=== PATIENT | female | born 1965 | race African-American/Black ===

== ENCOUNTER 2019-10-24 15:30 | Outpatient (RCR) | payer OTHER, SELFPAY ==
--- NOTE | 2019-09-03 13:55 | PTOPEVAL ---
INITIAL PHYSICAL THERAPY EVALUATION and PLAN OF CARE Thank you for referring Tanna to [facility]. She will be seen in PT 2x/wk x 4 wks. Please review, sign, date and return this plan of care YARY. I agree with and certify that the following plan of care is medically necessary. Referring Physician Date Admitting Provider: Attending Provider: Tk Alexandre MD Referring Provider: *PT Outpatient Evaluation Start: 09/03/19 12:39 Freq: Status: Active Protocol: Document 09/03/19 12:35 THERESA (Rec: 09/03/19 13:54 THERESA [id number]) Therapy Assessment Status Assessment Status Assessment Status Evaluation Outpatient Past Medical History Neurological History Hx Neurological Disorders No Significant History Cardiovascular History Hx Hypercholesterolemia Yes Hx Hypertension Yes Respiratory History Hx Respiratory Disorders No Significant History Gastrointestinal History Hx Gastrointestinal Disorders No Significant History Genitourinary History Hx Genitourinary Disorders No Significant History Musculoskeletal History Hx Back Pain Yes Endocrine History Hx Endocrine Disorders No Significant History Reproductive History Hx Reproductive Disorders No Significant History Psychosocial History Hx Depression Yes Evaluation Information Problem Diagnosis back pain, sciatica Onset years ago Subjective Information following prolonged sitting - Query Text:As Reported By Patient/ when goes to stand - R back/ Family thigh pain occurs 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 Does have to lift boxes - tries to watch the weight but on occasions does lift too heavy of a box for her. Years ago - fell down some steps. Walking long distances - lower back will hurt then R thigh. On occasions - feels like R knee/leg will give out on her. Sleeps on L side. 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
--- NOTE | 2019-09-24 14:53 | PCPTNOTE ---
Patient called & cancelled scheduled appointment this date.
--- NOTE | 2019-10-03 16:06 | PTOPEVAL ---
PHYSICAL THERAPY RE-EVALUATION and PLAN OF CARE Thank you for referring Tanna Huynh to [facility]. Recommending continuation of care 2x/wk x 4 wks. Please review, sign, date and return this plan of care YARY. I agree with and certify that the following plan of care is medically necessary. Referring Physician Date Admitting Provider: Attending Provider: Tk Alexandre MD Referring Provider: *PT Outpatient Evaluation Start: 09/03/19 12:39 Freq: Status: Active Protocol: Document 10/03/19 14:40 THERESA (Rec: 10/03/19 16:06 THERESA [email or web address]) Therapy Assessment Status Assessment Status Assessment Status Re-evaluation Evaluation Information Problem Subjective Information Tanna states today is a good Query Text:As Reported By Patient/ day. Woke up - no R leg pain Family - hasn't been to work today either. When R leg pain is present - still in R thigh, doesn't radiate below knee level. For sleeping - still taking pain pill for increase ease to get to sleep. Working - at times needs to leave work early due to increased R thigh pain. Still lifting items into and out of cart often - tries to avoid lifting , and not going up/down ladder anymore. She does limit her household activities due to trying to avoid increase in R thigh pain. Prefers not to take breaks at work due to after resting there is usually increase in discomfort - does better if she just keeps going. Pain Assessment Timing of Pain Assessment Timing of Pain Assessment Assessment Pain Scale Pain Scale Used Numeric (1 - 10) Self Report Pain Assessment Lower Posterior Back Reported Pain Level 0 Pain Description Pinching,Radiating,Sharp, Tightness Radicular Pain Location R anterior thigh - stays above knee level Lowest Pain Intensity 0 Greatest Pain Intensity 8 Pain Score Pain Score 0: Self Report Cervical and Lumbar ROM Lumbar ROM Lumbar Flexion (0-90) 60 Query Text:Active in Degrees Lumbar Extension (0-40) 15 Query Text:Active in Degrees Lumbar Lateral Flexion Right (0-4
--- NOTE | 2019-10-14 15:05 | PCPTNOTE ---
Patient called & cancelled scheduled appointment this date due to not being able to make it here today.
--- NOTE | 2019-10-24 16:51 | PTOPEVAL ---
PHYSICAL THERAPY DISCHARGE SUMMARY Thank you for referring Tanna Diaz to [facility]. Tanna has completed 12 visits in PT. I agree with Tanna's discharge from PT at this time. Referring Physician Date Admitting Provider: Attending Provider: Tk Alexandre MD Referring Provider: *PT Outpatient Evaluation Start: 09/03/19 12:39 Freq: Status: Active Protocol: Document 10/24/19 15:35 THERESA (Rec: 10/24/19 16:51 THERESA [email or web address]) Therapy Assessment Status Assessment Status Assessment Status Discharge Evaluation Information Problem Subjective Information Tanna continues to report R Query Text:As Reported By Patient/ anterior thigh pain and back Family pain - usually thigh pain is more intense and bothers her more. She is limited with work shift - often will leave early due to R thigh pain. When at work, she will lean on carriage to take pressure off her back and thigh. Work activities remain repetitive in nature - but she does try to take standing breaks. If she takes a sitting break - there is no pain with sitting but pain when she goes to stand up. When walking - R thigh pain isn't there right away but comes on after about 5 minutes of walking. Sleeping - needs pain medication and heat in order to fall asleep. Pain Assessment Timing of Pain Assessment Timing of Pain Assessment Assessment Pain Scale Pain Scale Used Numeric (1 - 10) Self Report Pain Assessment Lower Posterior Back Reported Pain Level 3 Lowest Pain Intensity 2 Greatest Pain Intensity 8 Additional Pain Comments R anterior thigh pain - best 2 worse 8 now 3 Pain Score Pain Score 3: Self Report Cervical and Lumbar ROM Lumbar ROM Lumbar Flexion (0-90) 45 Query Text:Active in Degrees Lumbar Extension (0-40) 10 Query Text:Active in Degrees Lumbar Lateral Flexion Right (0-40) 15 Query Text:Active in Degrees Lumbar Lateral Flexion Left (0-40) 15 Query Text:Active in Degrees Lumbar Comments pelvis level, equal SIJ mobility remains; with trunk
== END 2019-10-25 09:33 | disposition home or self-care (01) ==
LOC: ANHPT 15:30
PROVIDERS: PCP Emergency Medicine; Visit Provider Emergency Medicine
DX: M54.40 Lumbago with sciatica, unspecified side (principal)
CPT/HCPCS: 97014; 97110; 97140; 97161; G0283

== ENCOUNTER 2019-11-20 16:39 | Outpatient (CLI) | payer OTHER, SELFPAY ==
--- NOTE | ~2019-11-20 | MR_ITS ---
EXAMINATION: MR lumbar spine wo [facility] EXAM DATE: 11/20/2019 17:25 INDICATION: Low back pain, right leg pain. TECHNIQUE: Multi-sequential, multiplanar MR images of the lumbar spine were obtained without contrast . Sagittal T1, T2, T2 fat saturation images. Axial T2 weighted images. There is no prior study for comparison. FINDINGS: There is mild to moderate disc disease from T11 through L1 and at L4-5. There is 2 mm anter olisthesis L4 on L5. The conus medullaris terminates at the T12-L1 level and has normal signal intens ity and morphology. There are no suspicious marrow signal abnormalities. Paraspinal soft tissue is u nremarkable. Level by level evaluation: T12-L1: There is a mild diffuse disc bulge. Facet arthropathy: Mild. Neural foraminal stenosis: No stenosis. Central canal stenosis: No stenosis. L1-L2: Disc does not extend beyond the endplate margin. Facet arthropathy: Mild. Neural foraminal stenosis: No stenosis. Central canal stenosis: No stenosis. L2-L3: There is a mild diffuse disc bulge. Facet arthropathy: Mild. Neural foraminal stenosis: Mild left. Central canal stenosis: No stenosis. L3-L4: There is a mild diffuse disc bulge. Facet arthropathy: Mild to moderate. Neural foraminal stenosis: Mild bilateral. Central canal stenosis: Mild. L4-L5: There is a mild to moderate diffuse disc bulge. Facet arthropathy: Moderate. Neural foraminal stenosis: Mild to moderate bilateral. Central canal stenosis: Mild to moderate. L5-S1: There is a mild diffuse disc bulge. Facet arthropathy: Mild to moderate. Neural foraminal stenosis: Mild to moderate bilateral. Central canal stenosis: Mild. IMPRESSION: 1. Mild to moderate thoracolumbar spondylosis. Reviewed, dictated and finalized at location A.
== END 2019-11-20 16:40 | disposition home or self-care (01) ==
PROVIDERS: PCP Emergency Medicine; Visit Provider Emergency Medicine
DX: M54.41 Lumbago with sciatica, right side (principal); M47.895 Other spondylosis, thoracolumbar region
CPT/HCPCS: 72148

== ENCOUNTER 2022-06-14 13:21 | Outpatient (CLI) | payer OTHER, SELFPAY ==
--- NOTE | ~2022-06-14 | DEXA_ITS ---
Bone Density Report Name: CITLALY HINES Age: 57 Sex: Female Ethnicity: Black Date of : 1965 Indication: postmenopausal; screening for osteoporosis; Referring Provider: DONN CASTILLO Study: Bone densitometry was performed. Exam Date: June 14, 2022 Accession number: [id number] Bone Density: Region BMD T-score Z-score Classification AP Spine(L1-L4) 1.267 2.0 2.2 Normal Femoral Neck (Left) 0.948 0.9 0.8 Normal Total Hip (Left) 1.064 1.0 0.8 Normal Femoral Neck (Right) 0.973 1.1 0.9 Normal Total Hip (Right) 1.021 0.6 0.5 Normal Total Hip Mean 1.042 0.8 0.7 Normal World Health Organization criteria for BMD impression classify patients as: Normal (T-score at or above -1.0), Osteopenia (T-score between -1.0 and -2.5), or Osteoporosis (T-score at or below -2.5). 10-year Fracture Risk: FRAX not reported because: All T-scores for Spine Total, Hip Total, Femoral Neck at or above -1.0 Clinical Information Provided by Patient: Has used the following medications: Vitamin D Patient maximum height was 67.5 Menopause Age: 56 No regular weight bearing exercise Does not regularly consume dairy products Drinks caffeinated beverages Onset of menses at age 15 Number of children 4 Impression: The patient has normal bone mass. Discussion: BONE DENSITY IS ABOVE THE MINIMUM DESIRABLE LEVEL AT ALL SKELETAL SITES TESTED. This patient?s bone mineral density is above the minimum desirable level (T-score -1.0 or better) at all sites measured. The patient should follow a healthful lifestyle (good nutrition with adequate calcium and vitamin D, and appropriate weight-bearing exercise). Follow-Up: Consider repeating this study in 5 years or sooner if there is some new clinical indication. Reported by: SOULEYMANE on 06/14/2022 1:43:00 PM. Reviewed, dictated and finalized at location AArminda GUDINO
== END 2022-06-14 13:22 | disposition home or self-care (01) ==
LOC: ANHIMG 13:22
PROVIDERS: PCP Emergency Medicine; Visit Provider Emergency Medicine
DX: Z78.0 Asymptomatic menopausal state (principal)
CPT/HCPCS: 77080

== ENCOUNTER 2022-07-20 00:17 | Day surgery (SDC) | payer OTHER, SELFPAY ==
[2022-07-04 14:48] VITALS: BMI 30.4
--- NOTE | 2022-07-20 07:58 | SUR.PREOP ---
Patient states she has not had a period in over a year. No control. Policy states that she does not require test.
[2022-07-20 08:01] VITALS: BP 140/76; PULSE 103; RESP 17; TEMP 36.1; O2SAT 100
[2022-07-20] MEDS: LACTATED RINGERS 1,000 ML 150 ML IV CONT (08:11)
--- NOTE | 2022-07-20 08:15 | WPDANESEPPF ---
Anes - Initial Pre Proc Eval Procedure: Operation Date: 07/20/22 09:00 Proposed Procedures p Screening Colonoscopy - Guicho Parikh MD Date/Time: 07/20/22 08:15 Surgeon: Guicho Parikh MD Pre Op Diagnosis: neoplasm screening Patient Data Age: 57 Gender: F Height: 1.7 m Weight: 88.4 kg Last Vital Signs Temp 97.0 F L 07/20/22 08:01 Pulse 103 H 07/20/22 08:01 Resp 17 07/20/22 08:01 BP 140/76 07/20/22 08:01 Pulse Ox 100 07/20/22 08:01 O2 Del Method Room Air 07/20/22 08:01 Allergies Allergy/AdvReac Type Severity Reaction Status Date / Time No Known Allergies Allergy Mild Verified 07/20/22 07:59 Home Medications Medication Instructions Recorded Confirmed Type amlodipine 10 mg tablet 10 mg PO DAILY 07/04/22 07/20/22 History ergocalciferol (vitamin D2) 1,250 50,000 unit PO WEEKLY 07/04/22 07/20/22 History mcg (50,000 unit) capsule hydrocodone 5 mg-acetaminophen 325 1 tablet PO Q6H PRN Pain 07/04/22 07/20/22 History mg tablet pregabalin 50 mg capsule 50 mg PO BID 07/04/22 07/20/22 History rosuvastatin 5 mg tablet 5 mg PO DAILY 07/04/22 07/20/22 History venlafaxine 75 mg capsule,extended 75 mg PO DAILY 07/04/22 07/20/22 History release 24 hr Patient hx anesthesia problems: none Family hx anesthesia problems: none Results Review: All pre-operative results and documents have been reviewed as part of the pre-operative evaluation. [facility] Family History Family History (Updated 02/20/14 @ 07:13 by DOCTOR UNKNOWN) Mother Hypertension Family history of heart disease in male family member before age 55 Grandparent Hypertension Family history of irritable bowel syndrome Family history of heart disease in male family member before age 55 Diabetes mellitus Father Family history of heart disease in male family member before age 55 Social History Social History Smoking status: Never smoker Alcohol intake: never Substance use: never Substance use type: does not use Living arrangements: with family Spiritual care concerns: No Anes - Eval Final PreProcedure Day of Procedure 07/20/22 08:15 Patient weight: normal Heart: regular rate and rhythm Lungs: clear to auscultation Airway: Mallampati scale class II Neurological: alert and oriented Last oral intake: >/= 8 hours ASA classification: II Emergent: no Anesthetic plan: proceed Anesthesia type and monitoring: general GIVS and standard monitoring Results Review: All pre-operative results and documents have been reviewed as part of the pre-operative evaluation. Informed Consent: The patient's anesthetic plan and its attendant risks and benefits were discussed with the patient/family/POA. Questions were solicited and answers provided to the satisfaction of the patient/family/POA.
--- NOTE | 2022-07-20 08:21 | PM.HPGS ---
History of Present Illness History of Present Illness Consent: Risks, benefits, and alternatives have been discussed and questions answered. Patient agrees to proceed with procedure. Chief complaint: neoplasm screening Narrative: Tanna Huynh is a 57 year old female here for first screening colonoscopy Review of Systems Constitutional: Constitutional: Denies headache(s) and Denies weakness Eyes: Eyes: Denies blurry vision ENT: Reports Normal hearing present, Denies headache(s) and Denies neck pain Cardiovascular: Cardiovascular: Denies chest pain and Denies dyspnea Respiratory: Respiratory: Denies dyspnea Gastrointestinal: Gastrointestinal: Reports no additional gastrointestinal complaints Genitourinary: Genitourinary: Denies dysuria Musculoskeletal: Musculoskeletal: Denies neck pain Integumentary/Breasts: Skin/Breast: Denies dry skin Neurologic: Reports Normal hearing present, Denies headache(s) and Denies weakness Psychiatric: Psychiatric: Denies anxiety Endocrine: Endocrine: Denies change in body appearance Hematologic/Lymphatic: Hematologic/Lymphatic: Denies easy bleeding Allergic/Immunologic: Allergic/Immunologic: Denies urticaria PMFSH Past Medical History Medical History (Updated 07/20/22 @ 08:21 by Guicho Parikh MD) Colon cancer screening Family History Family History (Updated 02/20/14 @ 07:13 by DOCTOR UNKNOWN) Mother Hypertension Family history of heart disease in male family member before age 55 Grandparent Hypertension Family history of irritable bowel syndrome Family history of heart disease in male family member before age 55 Diabetes mellitus Father Family history of heart disease in male family member before age 55 Social History Social History Smoking status: Never smoker Alcohol intake: never Substance use: never Substance use type: does not use Living arrangements: with family Spiritual care concerns: No Meds Home Medications and Allergies Home Medications Medication Instructions Recorded Confirmed Type amlodipine 10 mg tablet 10 mg PO DAILY 07/04/22 07/20/22 History ergocalciferol (vitamin D2) 1,250 50,000 unit PO WEEKLY 07/04/22 07/20/22 History mcg (50,000 unit) capsule hydrocodone 5 mg-acetaminophen 325 1 tablet PO Q6H PRN Pain 07/04/22 07/20/22 History mg tablet pregabalin 50 mg capsule 50 mg PO BID 07/04/22 07/20/22 History rosuvastatin 5 mg tablet 5 mg PO DAILY 07/04/22 07/20/22 History venlafaxine 75 mg capsule,extended 75 mg PO DAILY 07/04/22 07/20/22 History release 24 hr Allergies Allergy/AdvReac Type Severity Reaction Status Date / Time No Known Allergies Allergy Mild Verified 07/20/22 07:59 Vital Signs Vital Signs - 24 hr 07/20/22 08:01 Temperature 97.0 F L Pulse Rate 103 H Respiratory Rate 17 Blood Pressure 140/76 Pulse Oximetry 100 Oxygen Delivery Room Air Exam Const: General: comfortable and no acute distress HENMT: Face/Nose/Sinus: Normal nares present Eyes: General: appearance normal, both eyes and all related structures Neck: Neck: no JVD Resp: Auscultation: clear to auscultation bilaterally Cardio: Rate: regular rate Rhythm: regular rhythm GI: Inspection: non-distended GI Palp: Yes Soft to palpation Skin: General skin exam: normal color Neuro: General: gait normal Speech: normal speech Extrem: General: normal to inspection Psych: Mental Status: mental status grossly normal Assessment and Plan Assessment and plan (1) Colon cancer screening: Code(s): Z12.11 - Encounter for screening for malignant neoplasm of colon Status: Acute Assessment and Plan: colonoscopy
[2022-07-20 09:08] VITALS: BP 114/63; PULSE 84; RESP 21; O2SAT 98
[2022-07-20 09:18] VITALS: BP 111/66; PULSE 75; RESP 24; O2SAT 100
[2022-07-20 09:28] VITALS: BP 125/67; PULSE 70; RESP 22; O2SAT 100
== END 2022-07-20 09:34 | disposition home or self-care (01) ==
PROVIDERS: PCP Emergency Medicine; Visit Provider Internal Medicine Gastroenterology
PROC: 0DJD8ZZ Inspection of Lower Intestinal Tract, Via Natural or Artificial Opening Endoscopic (ICD-10-PCS; CPT 45378; principal; 2022-07-20 09:00)
DX: Z12.11 Encounter for screening for malignant neoplasm of colon (principal); D12.2 Benign neoplasm of ascending colon
CPT/HCPCS: 45385; 45381; 88305; J2704; J7120

== ENCOUNTER 2022-08-10 10:17 | Outpatient (CLI) | payer OTHER, SELFPAY ==
--- NOTE | ~2022-08-10 | MM_ITS ---
EXAMINATION: MM screening demarco BI w cony HISTORY: Screening mammogram TECHNIQUE: Craniocaudal and mediolateral oblique 3-D tomosynthesis images were obtained and synthetic 2-D images were generated. CAD analysis was submitted and interpreted. COMPARISON: No prior mammogram is available for comparison at this institution. BREAST PARENCHYMAL COMPOSITION: The breasts are almost entirely fatty. FINDINGS: There is no evidence of suspicious mass, calcification, or architectural distortion to sugg est malignancy in either breast. There has been no suspicious interval change. IMPRESSION: 1. No mammographic evidence of malignancy. 2. Recommend routine screening mammography in one year. BI-RADS Category 1: Negative Reviewed, dictated and finalized at location A. [employer]
== END 2022-08-10 10:18 | disposition home or self-care (01) ==
LOC: ANHIMG 10:19
PROVIDERS: PCP Emergency Medicine; Visit Provider Emergency Medicine
DX: Z12.31 Encounter for screening mammogram for malignant neoplasm of breast (principal)
CPT/HCPCS: 77063; 77067

== ENCOUNTER 2023-03-08 01:37 | Day surgery (SDC) | payer OTHER, SELFPAY ==
[2023-02-20 15:04] VITALS: BMI 29.8
[2023-03-08 07:07] VITALS: BP 136/75; PULSE 90; RESP 20; TEMP 36.2; O2SAT 100
[2023-03-08 07:11] VITALS: BMI 29.9
[2023-03-08] MEDS: LACTATED RINGERS 1,000 ML 150 ML IV CONT (07:20)
--- NOTE | 2023-03-08 07:47 | P.PNAN_ITS ---
Anes - Initial Pre Proc Eval Procedure: Operation Date: 03/08/23 08:15 Proposed Procedures p Colonoscopy - Guicho Parikh MD Date/Time: 03/08/23 07:47 Surgeon: Guicho Parikh MD Pre Op Diagnosis: hx of colon polyps Patient Data Age: 57 Gender: F Height: 1.7 m Weight: 86.8 kg Last Vital Signs Temp 36.2 C L 03/08/23 07:07 Pulse 90 03/08/23 07:07 Resp 20 03/08/23 07:07 BP 136/75 03/08/23 07:07 Pulse Ox 100 03/08/23 07:07 O2 Del Method Room Air 03/08/23 07:07 Allergies Allergy/AdvReac Type Severity Reaction Status Date / Time No Known Allergies Allergy Mild Verified 03/08/23 07:05 Home Medications Medication Instructions Recorded Confirmed Type amlodipine 10 mg tablet 10 mg PO DAILY 07/04/22 02/20/23 History ergocalciferol (vitamin D2) 1,250 50,000 unit PO WEEKLY 07/04/22 02/20/23 History mcg (50,000 unit) capsule hydrocodone 5 mg-acetaminophen 325 1 tablet PO Q6H PRN Pain 07/04/22 02/20/23 History mg tablet pregabalin 50 mg capsule 50 mg PO BID 07/04/22 02/20/23 History rosuvastatin 5 mg tablet 5 mg PO DAILY 07/04/22 02/20/23 History lisinopril 20 mg tablet 20 mg PO DAILY 02/20/23 02/20/23 History Patient hx anesthesia problems: none Family hx anesthesia problems: none Results Review: All pre-operative results and documents have been reviewed as part of the pre- operative evaluation. [facility] Past Medical History Medical History Colon cancer screening Family History Family History Mother Hypertension Family history of heart disease in male family member before age 55 Grandparent Hypertension Family history of irritable bowel syndrome Family history of heart disease in male family member before age 55 Diabetes mellitus Father Family history of heart disease in male family member before age 55 Social History Social History Smoking status: Never smoker Alcohol intake: never Substance use: never Substance use type: does not use Living arrangements: with family Spiritual care concerns: No Anes - Eval Final PreProcedure Day of Procedure 03/08/23 07:47 Patient weight: overweight Heart: regular rate and rhythm Lungs: clear to auscultation Airway: Mallampati scale class II Neurological: alert and oriented Last oral intake: >/= 8 hours ASA classification: III Emergent: no Anesthetic plan: proceed Anesthesia type and monitoring: general GIVS and standard monitoring Results Review: All pre-operative results and documents have been reviewed as part of the pre- operative evaluation. Informed Consent: The patient's anesthetic plan and its attendant risks and benefits were discussed with the patient/family/POA. Questions were solicited and answers provided to the satisfaction of the patient/family/POA.
--- NOTE | 2023-03-08 08:18 | PM.HPGS ---
History of Present Illness History of Present Illness Consent: Risks, benefits, and alternatives have been discussed and questions answered. Patient agrees to proceed with procedure. Chief complaint: hx of colon polyps Narrative: Tanna Huynh is a 57 year old female with large ascending polyp removed in piece-meal 06/2022 Review of Systems Constitutional: Constitutional: Denies headache(s) and Denies weakness Eyes: Eyes: Denies blurry vision ENT: Reports Normal hearing present, Denies headache(s) and Denies neck pain Cardiovascular: Cardiovascular: Denies chest pain and Denies dyspnea Respiratory: Respiratory: Denies dyspnea Gastrointestinal: Gastrointestinal: Reports no additional gastrointestinal complaints Genitourinary: Genitourinary: Denies dysuria Musculoskeletal: Musculoskeletal: Denies neck pain Integumentary/Breasts: Skin/Breast: Denies dry skin Neurologic: Reports Normal hearing present, Denies headache(s) and Denies weakness Psychiatric: Psychiatric: Denies anxiety Endocrine: Endocrine: Denies change in body appearance Hematologic/Lymphatic: Hematologic/Lymphatic: Denies easy bleeding Allergic/Immunologic: Allergic/Immunologic: Denies urticaria PMFSH Past Medical History Medical History (Updated 03/08/23 @ 08:19 by Guicoh Parikh MD) Adenomatous colon polyp Colon cancer screening Family History Family History Mother Hypertension Family history of heart disease in male family member before age 55 Grandparent Hypertension Family history of irritable bowel syndrome Family history of heart disease in male family member before age 55 Diabetes mellitus Father Family history of heart disease in male family member before age 55 Social History Social History Smoking status: Never smoker Alcohol intake: never Substance use: never Substance use type: does not use Living arrangements: with family Spiritual care concerns: No Meds Home Medications and Allergies Home Medications Medication Instructions Recorded Confirmed Type amlodipine 10 mg tablet 10 mg PO DAILY 07/04/22 02/20/23 History ergocalciferol (vitamin D2) 1,250 50,000 unit PO WEEKLY 07/04/22 02/20/23 History mcg (50,000 unit) capsule hydrocodone 5 mg-acetaminophen 325 1 tablet PO Q6H PRN Pain 07/04/22 02/20/23 History mg tablet pregabalin 50 mg capsule 50 mg PO BID 07/04/22 02/20/23 History rosuvastatin 5 mg tablet 5 mg PO DAILY 07/04/22 02/20/23 History lisinopril 20 mg tablet 20 mg PO DAILY 02/20/23 02/20/23 History Allergies Allergy/AdvReac Type Severity Reaction Status Date / Time No Known Allergies Allergy Mild Verified 03/08/23 07:05 Vital Signs Vital Signs - 24 hr 03/08/23 07:07 Temperature 97.1 F L Pulse Rate 90 Respiratory Rate 20 Blood Pressure 136/75 Pulse Oximetry 100 Oxygen Delivery Room Air Exam Const: General: comfortable and no acute distress HENMT: Face/Nose/Sinus: Normal nares present Eyes: General: appearance normal, both eyes and all related structures Neck: Neck: no JVD Resp: Auscultation: clear to auscultation bilaterally Cardio: Rate: regular rate Rhythm: regular rhythm GI: Inspection: non-distended GI Palp: Yes Soft to palpation Skin: General skin exam: normal color Neuro: General: gait normal Speech: normal speech Extrem: General: normal to inspection Psych: Mental Status: mental status grossly normal Assessment and Plan Assessment and plan (1) Adenomatous colon polyp: Code(s): D12.6 - Benign neoplasm of colon, unspecified Status: Acute Assessment and Plan: colonoscopy
[2023-03-08 08:35] VITALS: BP 112/66; PULSE 81; RESP 22; O2SAT 100
[2023-03-08 08:45] VITALS: BP 122/74; PULSE 68; RESP 20; O2SAT 100
[2023-03-08 08:55] VITALS: BP 142/67; PULSE 72; RESP 20; O2SAT 100
== END 2023-03-08 09:04 | disposition home or self-care (01) ==
PROVIDERS: PCP Emergency Medicine; Visit Provider Internal Medicine Gastroenterology
PROC: 0DJD8ZZ Inspection of Lower Intestinal Tract, Via Natural or Artificial Opening Endoscopic (ICD-10-PCS; CPT 45378; principal; 2023-03-08 08:15)
DX: Z09 Encounter for follow-up examination after completed treatment for conditions other than malignant neoplasm (principal); Z86.010 Personal history of colon polyps
CPT/HCPCS: 45378; J2704; J7120

== ENCOUNTER 2023-10-11 15:41 | Outpatient (CLI) | payer OTHER, SELFPAY ==
--- NOTE | ~2023-10-11 | MM_ITS ---
EXAMINATION: MM screening demarco BI w cony HISTORY: Screening TECHNIQUE: Craniocaudal and mediolateral oblique 3-D tomosynthesis images were obtained and synthetic 2-D images were generated. CAD analysis was submitted and interpreted. COMPARISON: 10/11/2023 BREAST PARENCHYMAL COMPOSITION: The breasts are almost entirely fatty. FINDINGS: There is no evidence of suspicious mass, calcification, or architectural distortion to sugg est malignancy in either breast. There has been no suspicious interval change. IMPRESSION: 1. No mammographic evidence of malignancy. 2. Recommend routine screening mammography in one year. BI-RADS Category 1: Negative Reviewed, dictated and finalized at location B.
== END 2023-10-11 15:42 | disposition home or self-care (01) ==
LOC: ANHIMG 15:43
PROVIDERS: PCP Emergency Medicine; Visit Provider Emergency Medicine
DX: Z12.31 Encounter for screening mammogram for malignant neoplasm of breast (principal)
CPT/HCPCS: 77063; 77067

== ENCOUNTER 2024-09-15 13:00 | Emergency (ER) | payer OTHER, SELFPAY ==
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
--- NOTE | ~2024-09-15 | CT_ITS ---
EXAMINATION: CT lumbar spine wo con DATE: 09/15/2024 17:22 INDICATION: Low back pain TECHNIQUE: Computed tomography (CT) of the lumbar spine was performed without intravenous contrast. A utomated exposure control and iterative reconstruction technique were employed. Exam dose: 781.00 mG y-cm total exam DLP. COMPARISON: None FINDINGS: There is degenerative change at the lumbar apophyseal joints, particularly L4-5, with assoc iated slight grade 1 anterolisthesis of L4-5. There is mild degenerative spurring of the lumbar spine, most prominent at L1-2. There is mild loss of interspace height at L1-2 and L4-5. Remaining lumbar and lumbosacral interspace s appear relatively preserved. No fracture or bone destruction or spondylolisthesis. No herniated disc is appreciated. No primary spinal stenosis. Mild degenerative change at the sacroiliac joints. IMPRESSION: Mild lumbar spondylosis Reviewed, dictated and finalized at [facility]. Reviewed, dictated and finalized at location A. IMPRESSION: Mild lumbar spondylosis
--- OUTSIDE RECORDS SUMMARY | 2024-09-15 13:02 | XMS_ITS | Clinical Summary ---
Author Organization [facility] Address [address], [address] [place] [address] Phone Care Team Providers Care Training Professional Name Role Phone Alexandre Tk Primary Care Provider [phone] Margoth Carpio MD Unavailable Allergies No known active allergies Medications venlafaxine (EFFEXOR-XR) 75 MG CAPSULE SR 24 HR TAKE 1 CAPSULE BY MOUTH EVERY DAY WITH FOOD 03/29/2023 Active pregabalin (LYRICA) 50 MG Capsule Take 50 mg by mouth 2 times daily. 04/03/2023 Active rosuvastatin (CRESTOR) 5 MG Tablet Take 5 mg by mouth daily. 02/21/2023 Active HYDROcodone-cruz taminophen (NORCO) 5-325 MG Tablet TAKE 1 TABLET BY MOUTH EVERY 6 HOURS NEEDED FOR PAIN 04/08/2023 Active ergocalciferol (VITAMIN D) 92757 UNIT Capsule TAKE 1 CAPSULE BY MOUTH 1 TIME EVERY WEEK 05/06/2023 Active amLODIPine (NORVASC) 10 MG Tablet Take 10 mg by mouth daily. 03/26/2023 Active lisinopril (PRINIVIL, ZESTRIL) 20 MG Tablet Take 20 mg by mouth daily. 02/21/2023 Active Active Problems Problem Noted Date Diagnosed Date Iron deficiency anemia 08/01/2023 Family History Relation Name Status Comments Brother 1 Alive Brother 2 Alive Child 1 Alive Child 2 Alive Child 3 Alive Child 4 Alive Father Mother Sister 1 Alive Sister 2 Alive Social History Tobacco Use Types Packs/Day Years Used Date Smoking Tobacco: Never Smokeless Tobacco: Never Tobacco Cessation:Counseling Given: Not Answered Alcohol Use Standard Drinks/Week Comments Never 0 (1 standard drink = 0.6 oz pur e alcohol) Comments Unknown Sex and Gender Information Value Date Recorded Sex Assigned at Not on file Legal Sex Female 11:24 AM CDT Gender Identity Not on file Sexual Orientation Not on file Last Filed Vital Signs Vital Sign Reading Time Taken Comments Blood Pressure 122/80 06/04/2024 9:24 AM GEOINT ANALYST Pulse 82 06/04/2024 9:24 AM GEOINT ANALYST Temperature 36.6 C (97.8 F) 06/04/2024 9:24 AM GEOINT ANALYST Respiratory Rate 18 06/04/2024 9:24 AM GEOINT ANALYST Oxygen Saturation 100% 06/04/2024 9:24 AM GEOINT ANALYST Inhaled Oxygen Concentration - - Weight 93.9 kg (207 lb) 06/04/2024 9:24 AM GEOINT ANALYST Height 171.5 cm (5' 7.5 ) 06/04/2024 9:24 AM GEOINT ANALYST Body Mass Index 31.94 06/04/2024 9:24 AM GEOINT ANALYST Plan of Treatment Upcoming Encounters Date Type Department Care Team (Late st Contact Info) Description 09/24/2024 9:00 AM CDT Lab [facility] [address] [phone] Lab, [facility] 10/01/2024 9:30 AM CDT Office Visit [facility] [address] [phone] Margoth Carpio MD [address] [place] [id number] Health Maintenance Due Date Last Done Comments Hepatitis C Virus (HCV) Screening 1967 Mammogram 1967 TdaP Immunization 1967 Hepatitis B Immunization (1 of 3 - 19+ 3-dose series) 1986 Pap Smear 1988 Cervical Cancer Screening (CCS) 1997 HPV/Cotest 1997 Colonoscopy 2012 Colorectal Cancer Screening 2012 Cologuard 2017 Immunochemical Fecal Occult Blood 2017 Pneumococcal Immunization (5 0+ years) (1 of 1 - PCV) 2017 Zoster Immunization (1 of 2) 2017 Influenza Immunization (#1) 2024 SARS-COV-2 Immunization ( - 2023-25 season) 2024 Respiratory Syncytial Virus (RSV) Immunization (Adult) (1 - 1-dose 75+ series) 2042 Meningococcal Immunization (ACWY) Aged Out No longer eligible based on patient's age to complete this topic Rotavirus Immunization Aged Out No lo nger eligible based on patient's age to complete this topic Insurance [place]ICAID [place] Care Teams Training Professional Relationship Specialty Start Date End Date Tk Alexandre [address] [place] [address] PCP - General Family Medicine 04/21/23 Margoth Carpio MD [address] [place] [address] Consulting Physician Oncology 04/21/23
--- OUTSIDE RECORDS SUMMARY | 2024-09-15 13:02 | XMS_ITS | Continuity of Care Document ---
Author Organization [facility] Address [address] [place] [address] [place] [address] Phone Care Team Providers Care Stem Maker Name Role Phone Tk Alexandre MD Unavailable Unavailable Allergies, Adverse Reactions, Alerts Substance Reaction Status Criticality No Known Allergies Active No Inform ation Medications Medication Instructions Dosage Effective Dates (start - stop) Status Comments hydrocodone 5 mg-acetaminophen 325 mg tablet take 1 tablet by oral route every 6 hours as needed for pain as needed 1.00 tablet - Active PRN for pain, avoid driving or operate machines Lyrica 50 mg capsule take 1 capsule by oral route 2 times every day 50 MG - Active avoid driving or operate machines lisinopril 20 mg tablet take 1 tablet by oral route every day 20 MG - Active Effexor XR 75 mg capsule,extended release take 1 capsule by oral route every day with food 75 MG - Active Crestor 5 mg tablet take 1 tablet by oral route every day 5 MG - Active Norvasc 10 mg tablet take 1 tablet by oral route every day 10 MG - Active Vitamin D2 1,250 mcg (50,000 unit) capsule take one capsule orally once per week - Active Procedures Procedure Date OFFICE/OUTPATIENT VISIT, EST OFFICE/OUTPATIENT VISIT, EST OFFICE/OUTPATIENT VISIT, EST OFFICE/OUTPATIENT VISIT, EST PREV VISIT, EST, AGE 40-64 OFFICE/OUTPATIENT VISIT, EST OFFICE/OUTPATIENT VISIT, EST OFFICE/OUTPATIENT VISIT, EST OFFICE/OUTPATIENT VISIT, EST OFFICE/OUTPATIENT VISIT, EST PREV VISIT, EST, AGE 40-64 OFFICE/OUTPATIENT VISIT, EST OFFICE/OUTPATIENT VISIT, EST PREV VISIT, EST, AGE 40-64 OFFICE/OUTPATIENT VISIT, EST OFFICE/OUTPATIENT VISIT, EST OFFICE/OUTPATIENT VISIT, EST OFFICE/OUTPATIENT VISIT, EST PREV VISIT, EST, AGE 40-64 OFFICE/OUTPATIENT VISIT, EST OFFICE/OUTPATIENT VISIT, EST OFFICE/OUTPATIENT VISIT, EST OFFICE/OUTPATIENT VISIT, EST PREV VISIT, EST, AGE 40-64 OFFICE/OUTPATIENT VISIT, EST OFFICE/OUTPATIENT VISIT, EST OFFICE/OUTPATIENT VISIT, EST PREV VISIT, NEW, AGE 40-64 Advance Directives Directive Yes / No Effective Date File Name No Information Encounters Encounter Description Practice Location Reason(s) For Visit Diagnoses Date Provider Providers Copied on Encounter OFFICE/OUTPA TIENT VISIT, [place] [facility], [address], [place], [place], [address], [place] tel:[phone] [facility] back pain1 (chief complaint) Other spondylosis, lumbar region 5 Baldomero Banda [address], [place], [place], [address] , [place]. tel:[phone] [facility], [address], [address], [place] tel:[phone] [facility] No Information 4 Baldomero Banda [address], [place], [place], [address] , [place]. tel:[phone] OFFICE/OUTPA TIENT VISIT, [place] [facility], [address], [place], [place], [address], [place] tel:[phone] [facility] HLP (chief complaint)H TN (chief complaint)c olon polyp1 (chief complaint)a nxiety1 (chief complaint)b ack pain1 (chief complaint) Polyp of colonChronic pain syndromeEssential (primary) hypertensionGenera lized Anxiety DisorderMixed hyperlipidemiaIron deficiency anemia 4 Baldomero Frey. [address], [place], [place], [address] , [place]. tel:[phone] Referring Provider: Myrna Venegas [address], [place], [place], [address]. tel:[phone] OFFICE/OUTPA TIENT VISIT, [place] [facility], [address], [place], [place], [address], [place] tel:[phone] [facility] back pain1 (chief complaint)i az (chief complaint)c olon polyp1 (chief complaint) Chronic pain syndromeIron deficiency anemiaPolyp of colonEncntr screen mammogram for malignant neoplasm of breast 4 Baldomero Frey. [address], [place], [place], [address] , [place]. tel:[phone] Referring Provider: Myrna [address], [place], [place], [address]. tel:[phone] OFFICE/OUTPA TIENT VISIT, [place] [facility], [address], [place], [place], [address], [place] tel:[phone] [facility] HTN (chief complaint)i az deficiency1 (chief complaint)a nxiety1 (chief complaint)b ack pain1 (chief complaint) Iron deficiency anemiaEssential (primary) hypertensionGenera lized Anxiety DisorderChronic pain syndromeInconclusi ve mammogram 4 Baldomero Frey. [address], [place], [address] , [place]. tel:[phone] Referring Provider: Myrna Venegas [address], [place], [place], [address]. tel:[phone] PREV VISIT, EST, AGE 40-64 [facility], [address], [place], [place], [address], [place] tel:[phone] [facility] physical (chief complaint) Encounter for general adult medical examination without abnormal findings 3 Baldomero Frey. [address], [place], [place], [address] , [place]. tel:[phone] Referring Provider: Tk Alexandre [address], [place], [place], [address]. tel:[phone] OFFICE/OUTPA TIENT VISIT, [place] [facility], [address], [place], [place], [address], [place] tel:[phone] [facility] HTN (chief complaint)b ack pain1 (chief complaint)p olyp1 (chief complaint) Polyp of colonEssential (primary) hypertensionChroni c pain syndromeIron deficiency anemia 3 Baldomero Frey. [address], [place], [place], [address] , [place]. tel:[phone] Referring Provider: Myrna Veneg[address], [place], [place], [address]. tel:[phone] OFFICE/OUTPA TIENT VISIT, [place] [facility], [address], [place], [place], [address], [place] tel:[phone] [facility] colon polyp1 (chief complaint)H TN (chief complaint)b ack pain1 (chief complaint)a nxiety1 (chief complaint) Chronic pain syndromeEssential (primary) hypertensionGenera lized Anxiety DisorderPolyp of colon Feb 3 Baldomero Frey. [address], [place], [place], [address] , [place]. tel:[phone] Referring Provider: Myrna Veneg[address], [place], [place], [address]. tel:[phone] OFFICE/OUTPA TIENT VISIT, [place] [facility], [address], [place], [place], [address], [place] tel:[phone] [facility] HLP (chief complaint)i az (chief complaint)H TN (chief complaint)b ack pain1 (chief complaint) Iron deficiencyEssentia l (primary) hypertensionMixed hyperlipidemiaChro tk pain syndromeOther specified disorder of bone density 2 Baldomero Frey. [address], [place], [place], [address] , [place]. [phone] Referring Provider: Tk Alexandre, [address], [place], [place], [address]. tel:[phone] OFFICE/OUTPA TIENT VISIT, [place] [facility], [address], [place], [place], [address], [place] tel:[phone] [facility] HLP (chief complaint)a nxiety1 (chief complaint)b ack pain1 (chief complaint)H TN (chief complaint) Mixed hyperlipidemiaGene ralized Anxiety DisorderEssential (primary) hypertensionAnemia Chronic pain syndrome 2 Baldomero Frey. [address], [place], [place], [address] , [place]. [phone] Referring Provider: Myrna Venegas [address], [place], [place], [address]. tel:[phone] OFFICE/OUTPA TIENT VISIT, [place] [facility], [address], [place], [place], [address], [place] tel:[phone] [facility] back pain1 (chief complaint)H TN (chief complaint)H LP (chief complaint)a nemia1 (chief complaint) HyperlipidemiaEsse ntial (primary) hypertensionAnemia Chronic pain syndrome 2 Baldomero Frey. [address], [place], [place], [address] , [place]. tel:[phone] Referring Provider: Myrna Venegas [address], [place], [place], [address]. tel:[phone] PREV VISIT, EST, AGE 40-64 [facility], [address], [place], [place], [address], [place] tel:[phone] [facility] PHysical (chief complaint) Encounter for general adult medical examination without abnormal findings 2 Baldomero Frey. [address], [place], [place], [address] , [place]. tel:[phone] Referring Provider: Tk Alexandre, [address], [place], [place], [address]. tel:[phone] OFFICE/OUTPA TIENT VISIT, [place] [facility], [address], [place], [place], [address], [place] tel:[phone] [facility] Medicine anxiety1 (chief complaint)b ack pain1 (chief complaint)H TN (chief complaint) Vitamin D deficiency, unspecifiedEssenti al (primary) hypertensionOther spondylosis, lumbar regionHyperlipidem iaGeneralized Anxiety Disorder 2 Baldomero Frey. [address], [place], [place], [address] , [place]. tel:[phone] Referring Provider: Tk Alexandre [address], [place], [place], [address]. tel:[phone] OFFICE/OUTPA TIENT VISIT, [place] [facility], [address], [place], [place], [address], [place] tel:[phone] [facility] anxiety1 (chief complaint)H TN (chief complaint)b ack pain1 (chief complaint) Generalized Anxiety DisorderOther spondylosis, lumbar regionEssential (primary) hypertensionVitami n D deficiency, unspecified 1 Baldomero Frey. [address], [place], [place], [address] , [place]. tel:[phone] Referring Provider: Myrna Veneg[address], [place], [place], [address]. tel:[phone] PREV VISIT, EST, AGE 40-64 [facility], [address], [place], [place], [address], [place] tel:[phone] [facility] Medicine physical (chief complaint) Encounter for general adult medical examination without abnormal findings 0 1 Baldomero Frey. [address], [place], [place], [address] , [place]. tel:[phone] Referring Provider: Myrna Venegas [address], [place], [place], [address]. tel:[phone] OFFICE/OUTPA TIENT VISIT, [place] [facility], [address], [place], [place], [address], [place] tel:[phone] [facility] back pain1 (chief complaint)a nxiety1 (chief complaint)H LP (chief complaint) Generalized Anxiety DisorderOther spondylosis, lumbar regionHyperlipidem iaEncounter for screening for osteoporosis Feb- 0 Baldomero Banda [address], [place], [place], [address] , [place]. tel:[phone] Referring Provider: Myrna Venegas [address], [place], [place], [address]. tel:[phone] OFFICE/OUTPA TIENT VISIT, [place] [facility], [address], [place], [address], [place] tel:[phone] [facility] back pain1 (chief complaint) Other spondylosis, lumbar regionSciatica, right side Adryan-0 0 Baldomero Banda [address], [place], [place], [address] , [place]. tel:[phone] Referring Provider: Myrna Veneg[address], [place], [place], [address]. tel:[phone] OFFICE/OUTPA TIENT VISIT, [place] [facility], [address], [place], [place], [address], [place] tel:[phone] [facility] lumbago1 (chief complaint)a nxiety1 (chief complaint) Lumbago with sciatica, right sideGeneralized Anxiety Disorder October-0 0 Baldomero Banda [address], [place], [place], [address] , [place]. tel:[phone] Referring Provider: Myrna Veneg[address], [place], [place], [address]. tel:[phone] OFFICE/OUTPA TIENT VISIT, EST [facility], [address], [place], [place], [address], [place] tel:[phone] [facility] Medicine HLP (chief complaint)D (chief complaint)b ack pain1 (chief complaint) HyperlipidemiaVita min D deficiency, unspecifiedLumbago with sciatica, right sideEncounter for screening for malignant neoplasm of colon Aug-3 0-202 0 Baldomero Frey. [address], [place], [address] , [place]. tel:[phone] Referring Provider: Myrna Veneg[address], [place], [place], [address]. tel:[phone] PREV VISIT, EST, AGE 40-64 [facility], [address], [place], [place], [address], [place] tel:[phone] [facility] PHysical (chief complaint) Encntr for general adult medical exam w/o abnormal findings 0 Baldomero Frey. [address], [place], [place], [address] , [place]. [phone] Referring Provider: My[address], [place], [place], [address]. tel:[phone] OFFICE/OUTPA TIENT VISIT, EST [facility], [address], [place], [place], [address], [place] tel:[phone] [facility] back pain1 (chief complaint)a nxiety1 (chief complaint)i nsomnia1 (chief complaint)H LP (chief complaint) Generalized Anxiety DisorderChronic pain syndromeHyperlipid emiaInsomnia, unspecified 9 Baldomero Banda [address], [place], [place], [address] , [place]. [phone] Referring Provider: Myrna Veneg[address], [place], [place], [address]. tel:[phone] OFFICE/OUTPA TIENT VISIT, [place] [facility], [address], [place], [place], [address], tel:[phone] [facility] anxiety1 (chief complaint)i nsomnia1 (chief complaint)H TN (chief complaint)b ack pain1 (chief complaint)H LP (chief complaint) Essential (primary) hypertensionHyperl ipidemiaInsomniaLo w back painGeneralized Anxiety Disorder 9 Baldomero Frey. [address], [place], [place], [address] , [place]. [phone] Referring Provider: Myrna [address], [place], [place], [address]. tel:[phone] OFFICE/OUTPA TIENT VISIT, [place] [facility], [address], [place], [place], [address], [place] tel:[phone] [facility] HLP (chief complaint)D (chief complaint)a nxiety1 (chief complaint)h tn (chief complaint)t oothache1 (chief complaint) Essential (primary) hypertensionHyperl ipidemiaGeneralize d Anxiety DisorderAtypical facial painLow back pain 8 Baldomero Frey. [address], [place], [place], [address] , [place]. [phone] Referring Provider: My[address], [place], [place], [address]. tel:[phone] OFFICE/OUTPA TIENT VISIT, [place] [facility], [address], [place], [place], [address], [place] tel:[phone] [facility] HTN (chief complaint)i nsomnia1 (chief complaint) Essential (primary) hypertensionInsomn ia, unspecified 8 Baldomero Frey. [address], [place], [place], [address] , [place]. [phone] Referring Provider: Myrna Veneg[address], [place], [place], [address]. tel:[phone] PREV VISIT, EST, AGE 40-64 [facility], [address], [place], [place], [address], [place] [phone] [facility] PHysical (chief complaint) Encntr for general adult medical exam w/o abnormal findings 2 8 Baldomero Frey. [address], [place], [place], [address] , [place]. tel:[phone] Referring Provider: Tk Alexandre, [address], [place], [place], [address]. tel:[phone] OFFICE/OUTPA TIENT VISIT, [place] [facility], [address], [place], [place], [address], [place] tel:[phone] [facility] depression (chief complaint)i nsomnia (chief complaint)H TN (chief complaint)b ack pain (chief complaint) Dietary surveillance and counselingUnspecif ied essential hypertensionDepres sive disorder, not elsewhere classifiedInsomnia , unspecifiedLumbago 5 Baldomero Frey. [address], [place], [place], [address] , [place]. tel:[phone] Referring Provider: Myrna Venegas [address], [place], [place], [address]. tel:[phone] OFFICE/OUTPA TIENT VISIT, [place] [facility], [address], [place], [place], [address], [place] tel:[phone] [facility] HTN (chief complaint)i nsomnia (chief complaint)a nxiety (chief complaint) Dietary surveillance and counselingHyperten jared, UnspecifiedInsomni a, OtherDepression 5 Baldomero Frey. [address], [place], [place], [address] , [place]. tel:[phone] Referring Provider: [address], [place], [place], [address]. tel:[phone] OFFICE/OUTPA TIENT VISIT, [place] [facility], [address], [place], [place], [address], [place] tel:[phone] [facility] Medicine HTN (chief complaint)V itamin D (chief complaint)m urmur (chief complaint) Dietary surveillance and counselingHyperten jared, UnspecifiedUnspeci fied vitamin deficiencyMurmur 5 Baldomero Frey. [address], [place], [place], [address] , [place]. tel:[phone] Referring Provider: Myrna Veneg[address], [place], [place], [address]. tel:[phone] PREV VISIT, NEW, AGE 40-64 [facility], [address], [address], [place] tel:[phone] [facility] Physical (chief complaint) Dietary surveillance and counselingRoutine Medical ExamRoutine Medical Exam 4 Baldomero Frey. [address], [place], [place], [address] , [place]. tel:[phone] Family History Family Member Type Diagnosis Age At Onset Brother Problem (finding) Hypertension Father Problem (finding) Coronary artery disease 65 Brother Problem (finding) Alive and well Mother Problem (finding) Hypertension Payers Payer name Insurance type Covered democrat ID Zhanna richter(s) [facility] [id number] Social History Type Description Quantity Date Captured Comments Alcohol Use Details No Caffeine Use Details Unknown Tobacco Use Status Never smoked tobacco 2024 Smoking Status Never smoker Sex Female Vital Signs Date / Time: Height Weight BMI Pulse Rate Blood Pressure Temperature Respiratory Rate Body Surface Area Head Circumference BMI percentile Pulse Ox Inhaled Ox 10:08 AM 67.00 in 206.20 lbs 32.3 0 kg/m eter (2) 78 /min 130/72 mm[Hg] 97.4 F 16 /min Chief Complaint And Reason For Visit From encounter dated '07/17/2024 10:08'. back pain1 (chief complaint). Description: Pt has chronic low back pain Pt has DDD. Pt denies any loss of bowel or bladder control or any saddle area paresthesia .Pt takes lyrica and norco PRN for pain. Her insurance only cover 20 pills at each time . Plan Of Treatment Date Type Action Status Goal Special diet education compl eted Goal Special diet education compl eted Goal Special diet education compl eted Goal Special diet education compl eted Goal Special diet education compl eted Referral Ordered: Hematology (related to Encounter for general adult medical examination without abnormal findings) ordered Referral Ordered: Referrals: Hematology. Evaluate and treat ordered Referral Ordered: DXA BONE DENSITY, AXIAL ordered Referral Ordered: LAUREN CISNEROS -Allopathic & Osteopathic Physicians : Orthopaedic Surgery (related to Other spondylosis, lumbar region) ordered Referral Ordered: LAUREN CISNEROS -Pain Medicine (related to Other spondylosis, lumbar region) ordered Referral Referred To: LAUREN CISNEROS [address] [facility] [address] [place], [place], [phone] Ordered: Referrals: Pain Medicine. LAUREN CISNEROS. Evaluate and treat ordered Referral Referred To: LAUREN CISNEROS [address] [facility] [address] [place], [place], [phone] Ordered: Referrals: Allopathic & Osteopathic Physicians : Orthopaedic Surgery. LAUREN CISNEROS. Evaluate and treat ordered Referral Ordered: MRI LUMBAR SPINE W/O DYE ordered Referral Ordered: Physical Therapy (related to Encntr for general adult medical exam w/o abnormal findings) ordered Referral Ordered: COLONOSCOPY AND BIOPSY ordered Referral Ordered: Physical Therapy (related to Chronic pain syndrome) ordered Referral Ordered: LUMBAR XRAY AP AND LAT ONLY ordered Referral Ordered: Physical Therapy (related to Encntr for general adult medical exam w/o abnormal findings) ordered Referral Referred To: Physical Therapy Ordered: Referrals: Physical Therapy. Evaluate and treat ordered Referral Ordered: MAMMOGRAM, SCREENING ordered Referral Ordered: DOPPLER ECHO EXAM, HEART ordered Appointment Tanna Huynh BOOKED History Of Present Illness Encounter Date Complaint History Of Prese nt Illness back pain1 Pt has chronic l ow back pain Pt has DDD. Pt denies any loss of bowel or bladder control or any saddle area paresthesia .Pt takes lyrica and norco PRN for pain. Her insurance only cover 20 pills at each time . anxiety1 Pt has chronic a nxiety and depression. Pt take Effexor and doing ok .Pt denies any suicidal or homicidal thought. Pt denies any crying spells colon polyp1 Pt has tubular a denoma. Pt did d/w GI doctor about colonoscopy and was told to repeat 2025. HTN Pt has HTN pt ta kes norvasc and lisinopril and her bp is ok. HLP Pt has HLP Pt ta kes crestor. Pt denies any myalgia back pain1 Pt has low back pain with sciatica and neuropathy PT denies any loss of bowel or bladder control or saddle area paresthesia. Pt needs norco and lyrica refilled. Pt doing ok with meds Pt has DDD iron Pt has iron defi ciency anemia. S/p iron infusion recently by hematology and was told CBC and iron ok now Pt denies any bleeding back pain1 Pt has low back pain with sciatica and neuropathy PT denies any loss of bowel or bladder control or saddle area paresthesia. Pt needs norco and lyrica refilled. Pt doing ok with meds Pt has DDD colon polyp1 Pt has history o f tubular adenoma on colonoscopy june of last year. She had repeat colonoscopy February of last year which was normal and she supposes to repeat colonoscopy in 3 years . Pt states that she received a call from GI to repeat colonoscopy next month. Pt denies any GI issue back pain1 Pt has low back pain with sciatica and neuropathy PT denies any loss of bowel or bladder control or saddle area paresthesia. Pt needs norco and lyrica refilled. Pt doing ok with meds Pt has DDD anxiety1 Pt has chronic a nxiety and depression ,Pt doing ok with effexor Pt denies any suicidal or homicidal thought Pt denies any crying spells iron deficiency1 Pt has iron def iciency anemia Pt is seeing hematology and she takes oral iron here and there. Pt is waiting for insurance approval for iron infusion by hematology. Pt has hematology papito next week. Pt denies any fatigue or sob or chest pain HTN Pt has HTN Pt ta kes norvasc and lisinopril and her bp is borderline high Pt has been slightly stressed . Pt denies any chest pain or headache. physical Pt needs annual physical Pt has chronic low back pain with sciatica and leg numbness Pt takes norco and lyrica and doing ok Pt denies any loss of bowel or bladder control or saddle area paresthesia. Pt has anxiety and depression Pt takes effexor and doing ok. Pt denies any suicidal or homicidal thought ,Pt denies any crying spells Pt has HLP Pt takes crestor and his lipid profile is ok. Pt denies any myalgia .Pt has HTn. Pt takes lisinopril and norvasc an d his bp is stable. Pt has iron deficiency anemia. Pt denies any blood loss. polyp1 Pt has large tub ular adenoma on colonoscopy two months ago Pt denies any bleeding or weight loss back pain1 Pt has low back pain with sciatica and neuropathy PT denies any loss of bowel or bladder control or saddle area paresthesia. Pt needs norco and lyrica refilled. HTN Pt has HTn Pt ta kes lisinopril and norvasc and her bp is ok colon polyp1 Pt had colonosco py done 6 days ago which showed ascending colon polyps and she was told to repeat in 6 months The biopsy is not available yet .Pt denies any GI bleeding or symptpms HTN Pt has HTN Pt ta kes norvasc and lisinopril and her bp is still high .Pt denies any chest pain or headache back pain1 Pt has chronic l ow back pain with mild sciatica. pt doing ok with lyrica Pt needs some norco refilled PRN Pt denies any loss of bowel or bladder control or saddle area paresthesia anxiety1 Pt has chronic a nxiety and depression Pt takes effexor Pt needs refill Pt denies any suicidal or homicidal thought Pt denies ay crying spells HLP Pt has HLP pt ta catarino crestor and her lipid profile is ok now Pt denies any myalgia iron Pt is not anemic but her iron is borderline low Pt denies any bleeding .Pt has colonoscopy scheduled next month. HTN Pt has HTN, Pt t [place] norvasc and bystolic is not covered. her bp is borderline high pt denies any chest pain or headache back pain1 Pt has chronic l ow back pain with mild sciatica. pt doing ok with lyrica Pt needs some norco refilled PRN Pt denies any loss of bowel or bladder control or saddle area paresthesia HLP Pt has HLP Pt ta adamas crestor. Pt has been skipping dose. Pt denies any myalgia anxiety1 Pt has chronic a nxiety and depression. Pt takes effexor and doing ok Pt denies any suicidal or homicidal thought Pt denies any crying spells. back pain1 Pt has back pain and sciatica and mild leg neuropathy. Pt has not been on lyrica for a while Pt takes norco PRN for pain ,Pt denies any loss of bowel or bladder control or saddle area paresthesia. HTN Pt has HTN P rain es norvasc but bp still high Pt denies any chest pain or headache HTN Pt has HTN Pt ta kes norvasc and her bp is borderline today Pt denies any chest pain or headache back pain1 Pt has chronic l ow back pain with sciatica and leg numbness .Pt had some back injection which did help slightly. Pt denies any loss of bladder control. Pt is on her feet all day at work. Pt takes lyrica and norco PRN which helps. Pt failed PT in the past. Pt needs work restriction completed. pt needs norco refilled. Pt denies any saddle area paresthesia HLP Pt has HLP Pt stacey flores and tolerating it ok Pt denies any myalgia anemia1 Pt has mild low WBC and anemia Pt denies any bleeding. Pt denies any fatigue or dizziness PHysical Pt needs annual physical Pt has chronic low back pain with mild sciatica and leg paresthesia Pt denies any loss of bowel or bladder control .Pt denies any loss of bowel or bladder control or any saddle area paresthesia. Pt takes lyrica, norco PRN and doing ok. Pt also has mild anemia, low wbc and persistent HLP on lab work. Pt denies any bleeding .pt denies any dizziness, chest pain, sob, etc anxiety1 Pt has chronic a nxiety and depression Pt doing ok with effexor Pt denies any suicidal or homicidal thought Pt denies any crying spells back pain1 Pt has chronic l ow back pain with sciatica and leg numbness .Pt had some back injection which did help slightly. Pt denies any loss of bladder control. Pt is on her feet all day at work. Pt takes lyrica and norco PRN which helps. Pt failed PT in the past. Pt states that she is doing ok unless she climb ladders while at work Pt denies any saddle area paresthesia. HTN Pt has HTN Pt ta adamas norvasc and her bp is ok. anxiety1 Pt has chronic a nxiety and depression Pt doing ok with effexor Pt denies any suicidal or homicidal thought Pt denies any crying spells HTN Pt has HTN Pt ta kes norvasc and her BP is ok Pt denies any swelling or chest pain or headache back pain1 Pt has chronic l ow back pain with sciatica and leg numbness .Pt had some back injection which did help for a week or so. Pt denies any loss of bladder control. Pt is on her feet all day at work. Pt takes lyrica and norco PRN which helps. Pt failed PT in the past physical Pt needs annual physical Pt has chronic low back pain with sciatica and leg numbness .Pt had some back injection which did help for a week or so. Pt denies any loss of bladder control. Pt only took lyrica for one month and she has not been on it since last March Pt thinks that lyrica did help Pt also has anxiety and depression Pt states that effexor did help but she is out as well .Pt denies any suicidal or homicidal thought Pt denies any crying spells anxiety1 Pt has anxiety a nd depression Pt takes wellbutrin and xanax PRN and she feels more depressed and anxious lately. Pt denies any suicidal or homicidal thought. Pt states that her back pain is making her more depressed HLP Pt has HLP. Pt i s working on low fat and low carb diet back pain1 Pt has chronic l ow back pain with right sciatica and right leg numbness and tingling ,Pt has DDD .Pt saw Dr. 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 back pain1 Pt has chronic l ow back pain with right sciatica and right leg numbness and tingling pt denies any loss of bladder control pt states that the back pain is worse while at work. 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 Pt states that ultram does not help very much for her pain Pt has 6/10 sharp pain, worse while at work. pt also states that flexeril qhs PRn and she states that she does not take vistaril when she takes flexeril, which relaxes her . lumbago1 Pt has chronic l ow back pain with right sciatica and right leg numbness and tingling pt is working at [employer] and she does have to lift sometimes and she has worsening back pain now. Pt states that resting is better but her back pain is really bad after she returned to work recently, Pt denies any injury. pt denies any loss of bladder control. pt has 8/10 pain on bad days and is around 2/10 without working Pt has been taking flexeril and ultram for pain but really is not helping much. anxiety1 Pt has chronic a nxiety and depression Pt takes wellbutrin and xanax PRn and doing ok. Pt denies any suicidal or homicidal thought ,Pt denies any crying spells HLP Pt has mild HLP. Pt has been diet and exercising Her lipid is better but not at goal back pain1 Pt has chronic l ow back pain Pt c/o right sciatica and right leg numbness, which is worse recently. Pt denies any loss of bladder control. Pt started PT recently but has not helped. Pt states that flexeril does help but makes her drowsy during the next day Pt has DDD. Pt does lift a lot while at work. Pt denies any injury. Pt denies any weakness pt states that working on her feet makes it worse Pt has not been to work since last week Pt has 7/10 sharp pain D Pt has low D. Pt is on calcium and D supplement from [facility] PHysical Pt needs annual physical. Pt has hTN Pt takes norvasc and her BP is stable. Pt has chronic anxiety and depression, Pt takes Wellbutrin and xanax PRN and doing ok, Pt denies any suicidal or homicidal thought Pt denies any crying spells. Pt has chronic low back pain. Pt c/o left sciatica and left leg numbness ,Pt denies any loss of bladder control. Pt denies any other complaints back pain1 Pt has chronic l ow back pain with left sciatica and she feels mild tingling left leg pt denies any loss of bladder control Pt has above for years. Pt denies any worsening pain anxiety1 Pt has chronic a nxiety and depression Pt takes wellbutrin and xanax PRn and doing ok. pt denies any suicidal or homicidal thought Pt denies any crying spells insomnia1 Pt has insomnia Pt takes vistaril qhs and doing ok. pt denies any snoring or any trouble with breathing at night. Pt denies any fatigue HLP Pt has HLP. Pt h as not been eating healthy. Pt does not want to try statins back pain1 Pt has intermitt ent low back pain Pt denies any worsening pain. Pt denies any loss of bladder control Pt denies any injury. Pt states that ibuprofen really helped. HLP Pt has HLP Pt is working on diet now anxiety1 Pt has chronic a nxiety and depression Pt takes wellbutrin and xanax PRn and doing ok Pt denies any suicidal or homicidal thought Pt denies any crying spells insomnia1 Pt has insomnia. Pt doing ok with vistaril PRn pt does not snore .Pt denies any fatigue HTN Pt has HTn Pt stacey chapa. her BP is ok Pt denies any chest pain or headache toothache1 Pt has right upp er toothache. her right upper molar broke several months ago. pt c/o toothache for one week. pt denies any facial swelling or fever htn Her BP is border line with norvasc anxiety1 Pt has chronic a nxiety and depression Pt takes wellbutrin and xanax PRn and doing ok. Pt denies any suicidal or homicidal thought Pt denies any crying spells D Pt has low vitam in D HLP Pt has HLP. pt h as not been on diet. HTN Pt has HTn. Pt t ted chapa and her BP is high today. pt denies any chest pain or headache. Pt does not check her BP at home insomnia1 Pt has insomnia. pt takes vistaril qhs PRn and doing ok Pt denies any snoring or any trouble with breathing at night PHysical Pt needs annual physical pt has HTn Pt takes norvasc only now while in senior living .Pt not sure what her BP was with norvasc only Pt was just released from senior living due to tax issue. her BP is high today. Pt denies any chest pain or headache Pt has chronic anxiety and depression Pt tried something in senior living but not sure what and she is out. Pt wants to go back to wellbutrin and xanax PRn. Pt did well on above meds in the past Pt has insomnia Pt takes vistaril qhs PRn and doing ok Pt denies any snoring or any trouble with breathing at night Pt has intermittent low back pain Pt denies any sciatica Pt denies any loss of bladder control. Pt denies any injury back pain Additional infor mation: Pt c/o mild low back pain for several months. NO injury. Pt denies any loss of bowel or bladder control. Pt denies sciatica or numbness. Pt does a lot of lifting. HTN BP is 130/80 whi le on losartan and norvasc. Pt is out of meds. No chest pain or headache insomnia The patient pres ents for insomnia. Relevant history: a BMI of 30.85. The patient does not have: use of alcohol. Additional information: Pt states that vistaril works well. However, she feels tired next day. depression Additional infor mation: Pt has chronic anxiety and depression. Pt doing much better with wellbutrin and xanax. Pt denies any suicdial thought. Instructions Date Instruction Additional Infor mation Special diet education Related t o Body mass index (BMI) 31.0-31.9, adult Increase physical activity Relat ed to Generalized Anxiety Disorder Weight management Related to Gen eralized Anxiety Disorder Special diet education Related t o Body mass index (BMI) 32.0-32.9, adult Increase activity. Related to Es sential (primary) hypertension Follow a low sodium diet. Relate d to Essential (primary) hypertension Follow a low sodium diet. Relate d to Essential (primary) hypertension Special diet education Related t o Body mass index (BMI) 32.0-32.9, adult Increase activity. Related to Es sential (primary) hypertension Special diet education Related t o Body mass index (BMI) 32.0-32.9, adult Increase activity. Related to Es sential (primary) hypertension Follow a low sodium diet. Relate d to Essential (primary) hypertension Increase activity. Related to En cntr for general adult medical exam w/o abnormal findings Special diet education Related t o Body mass index (BMI) 32.0-32.9, adult Perform monthly self breast examinations. Related to Encntr for general adult medical exam w/o abnormal findings Prescribed Activity and Exercise Education Related to Dietary Surveillance and Counseling Prescribed Diet Educ ation/Lifestyle Education Regarding Diet Related to Dietary Surveillance and Counseling Physical activity counseling Rel ated to Dietary surveillance counseling Decrease caloric intake Related to Dietary surveillance counseling Decrease caloric intake Related to Dietary surveillance counseling Physical activity counseling Rel ated to Dietary surveillance counseling Physical activity counseling Rel ated to Dietary surveillance counseling Decrease caloric intake Related to Dietary surveillance counseling Dietary counseling Related to Di etary surveillance counseling Assessments Type Assessment Date assessment Other spondylosis, lumbar region Mental Status Date Cognitive Assessment Orientation - [place] ed to time, place, person, situation.
[2024-09-15 13:04] VITALS: BP 157/81; PULSE 94; RESP 16; TEMP 36.2; O2SAT 100
[2024-09-15 15:57] VITALS: BP 149/74; PULSE 82; RESP 14; O2SAT 100
--- OUTSIDE RECORDS SUMMARY | 2024-09-15 16:33 | XMS_ITS | Clinical Summary ---
Author Organization [facility] Address [address] [place] [address] Phone Care Team Providers Care Wood Experimental Mechanic Name Role Phone Alexandre Tk Primary Care Provider [phone] Margoth Carpio MD Unavailable Allergies No known [...] FOR PAIN 04/08/2023 Active ergocalciferol (VITAMIN D) 89634 UNIT Capsule TAKE 1 CAPSULE BY MOUTH [...] Comments Blood Pressure 122/80 06/04/2024 9:24 AM HISTORIC INTERPRETER Pulse 82 06/04/2024 9:24 AM HISTORIC INTERPRETER Temperature 36.6 C (97.8 F) 06/04/2024 9:24 AM HISTORIC INTERPRETER Respiratory Rate 18 06/04/2024 9:24 AM HISTORIC INTERPRETER Oxygen Saturation 100% 06/04/2024 9:24 AM HISTORIC INTERPRETER Inhaled Oxygen Concentration - - Weight 93.9 kg (207 lb) 06/04/2024 9:24 AM HISTORIC INTERPRETER Height 171.5 cm (5' 7.5 ) 06/04/2024 9:24 AM HISTORIC INTERPRETER Body Mass Index 31.94 06/04/2024 9:24 AM HISTORIC INTERPRETER Plan of Treatment Upcoming Encounters Date Type Department Care Team (Late st Contact Info) Description 09/24/2024 9:00 AM CDT Lab [facility] [address] [phone] Lab, [facility] 10/01/2024 9:30 AM CDT Office Visit [facility] [address] [phone] Margoth Carpio MD [address] [place] [id number] Health Maintenance Due Date Last Done Comments [...] age to complete this topic Insurance MEDICAID [place] Care Teams Wood Experimental Mechanic Relationship Specialty Start Date End Date Tk Alexandre [address] [place] [address] PCP - General Family Medicine 04/21/23 Margoth Carpio MD [address] [place] [address] Consulting Physician Oncology 04/21/23
--- OUTSIDE RECORDS SUMMARY | 2024-09-15 16:33 | XMS_ITS | Continuity of Care Document ---
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 Name Role Phone Tk Alexandre MD Unavailable [...] - Active avoid driving or operate machines Norvasc 10 mg tablet take 1 tablet by oral route every day 10 MG - Active Crestor 5 mg tablet take 1 tablet by oral route every day 5 MG - Active Effexor XR 75 mg capsule,extended release take 1 capsule by oral route every day with food 75 MG - Active lisinopril 20 mg tablet take 1 tablet by oral route every day 20 MG - Active Vitamin D2 1,250 mcg [...] Providers Copied on Encounter OFFICE/OUTPA TIENT VISIT, [facility], [address], [place], [place], [address], [place] tel:[phone] [facility] back pain1 (chief complaint) Other spondylosis, lumbar region 5 Baldomero Banda [address], [place], [place], [address] , [place]. tel:[phone] [facility], [address], [address], [place] tel:[phone] [facility] No Information 4 Baldomero Banda [address], [place], [place], [address] , [place]. tel:[phone] OFFICE/OUTPA TIENT VISIT, [facility], [address], [place], [place], [address], [place] tel:[phone] [facility] HLP (chief complaint)H TN (chief complaint)c olon polyp1 (chief complaint)a nxiety1 (chief complaint)b ack pain1 (chief complaint) Polyp of colonChronic pain syndromeEssential (primary) hypertensionGenera lized Anxiety DisorderMixed hyperlipidemiaIron deficiency anemia 4 Baldomero Frey. [address], [address], [place], [place], [address] , [place]. tel:[phone] Referring Provider: Myrna Venegas [address], [place], [place], [address]. tel:[phone] OFFICE/OUTPA TIENT VISIT, [facility], [address], [place], [place], [address], [place] tel:[phone] [facility] back pain1 (chief complaint)i az (chief complaint)c olon polyp1 (chief complaint) Chronic pain syndromeIron deficiency anemiaPolyp of colonEncntr screen mammogram for malignant neoplasm of breast 4 Baldomero Frey. [address], [address], [place], [place], [address] , [place]. tel:[phone] Referring Provider: Myrna [address], [place], [place], [address]. tel:[phone] OFFICE/OUTPA TIENT VISIT, [facility], [address], [place], [place], [address], [place] tel:[phone] [facility] HTN (chief complaint)i az deficiency1 (chief complaint)a nxiety1 (chief complaint)b ack pain1 (chief complaint) Iron deficiency anemiaEssential (primary) hypertensionGenera lized Anxiety DisorderChronic pain syndromeInconclusi ve mammogram 4 Baldomero Frey. [address], [address], [place], [place], [address] , [place]. tel:[phone] Referring Provider: Myrna Venegas [address], [place], [place], [address]. tel:[phone] PREV VISIT, EST, AGE 40-64 [facility], [address], [place], [place], [address], [place] tel:[phone] [facility] physical (chief complaint) Encounter for general adult medical examination without abnormal findings 3 Baldomero Frey. [address], [address], [place], [place], [address] , [place]. tel:[phone] Referring Provider: Tk Alexandre [address], [place], [place], [address]. tel:[phone] OFFICE/OUTPA TIENT VISIT, [facility], [address], [place], [place], [address], [place] tel:[phone] [facility] HTN (chief complaint)b ack pain1 (chief complaint)p olyp1 (chief complaint) Polyp of colonEssential (primary) hypertensionChroni c pain syndromeIron deficiency anemia 3 Baldomero Frey. [address], [place], [place], [address] , [place]. tel:[phone] Referring Provider: Myrna [address], [place], [place], [address]. tel:[phone] OFFICE/OUTPA TIENT VISIT, [facility], [address], [place], [place], [address], [place] tel:[phone] [facility] colon polyp1 (chief complaint)H TN (chief complaint)b ack pain1 (chief complaint)a nxiety1 (chief complaint) Chronic pain syndromeEssential (primary) hypertensionGenera lized Anxiety DisorderPolyp of colon Feb 3 Baldomero Frey. [address], [address], [place], [place], [address] , [place]. tel:[phone] Referring Provider: Myrna [address], [place], [place], [address]. tel:[phone] OFFICE/OUTPA TIENT VISIT, [facility], [address], [place], [place], [address], [place] tel:[phone] [facility] HLP (chief complaint)i az (chief complaint)H TN (chief complaint)b ack pain1 (chief complaint) Iron deficiencyEssentia l (primary) hypertensionMixed hyperlipidemiaChro tk pain syndromeOther specified disorder of bone density 2 Baldomero Frey. [address], [place], [place], [address] , [place]. [phone] Referring Provider: Tk Alexandre, [address], [place], [place], [address]. tel:[phone] OFFICE/OUTPA TIENT VISIT, [facility], [address], [place], [place], [address], [place] tel:[phone] [facility] HLP (chief complaint)a nxiety1 (chief complaint)b ack pain1 (chief complaint)H TN (chief complaint) Mixed hyperlipidemiaGene ralized Anxiety DisorderEssential (primary) hypertensionAnemia Chronic pain syndrome 2 Baldomero Frey. [address], [place], [place], [address] , [place]. [phone] Referring Provider: Myrna Venegas [address], [place], [place], [address]. tel:[phone] OFFICE/OUTPA TIENT VISIT, [facility], [address], [place], [place], [address], [place] tel:[phone] [facility] back pain1 (chief complaint)H TN (chief complaint)H LP (chief complaint)a nemia1 (chief complaint) HyperlipidemiaEsse ntial (primary) hypertensionAnemia Chronic pain syndrome 2 Baldomero Frey. [address], [place], [address] , [place]. tel:[phone] Referring Provider: Myrna Venegas [address], [place], [place], [address]. tel:[phone] PREV VISIT, EST, AGE 40-64 [facility], [address], [place], [place], [address], [place] tel:[phone] [facility] PHysical (chief complaint) Encounter for general adult medical examination without abnormal findings 2 Baldomero Frey. [address], [place], [place], [address] , [place]. tel:[phone] Referring Provider: Tk Alexandre, [address], [place], [place], [address]. tel:[phone] OFFICE/OUTPA TIENT VISIT, [facility], [address], [place], [place], [address], [place] tel:[phone] [facility] Medicine anxiety1 (chief complaint)b ack pain1 (chief complaint)H TN (chief complaint) Vitamin D deficiency, unspecifiedEssenti al (primary) hypertensionOther spondylosis, lumbar regionHyperlipidem iaGeneralized Anxiety Disorder 2 Baldomero Frey. [address], [place], [place], [address] , [place]. tel:[phone] Referring Provider: Tk Alexandre [address], [place], [place], [address]. tel:[phone] OFFICE/OUTPA TIENT VISIT, [facility], [address], [place], [place], [address], [place] tel:[phone] [facility] anxiety1 (chief complaint)H TN (chief complaint)b ack pain1 (chief complaint) Generalized Anxiety DisorderOther spondylosis, lumbar regionEssential (primary) hypertensionVitami n D deficiency, unspecified 1 Baldomero Frey. [address], [place], [place], [address] , [place]. tel:[phone] Referring Provider: Myrna Venegas [address], [place], [place], [address]. tel:[phone] PREV VISIT, EST, AGE 40-64 [facility], [address], [place], [place], [address], [place] tel:[phone] [facility] Medicine physical (chief complaint) Encounter for general adult medical examination without abnormal findings 0 1 Baldomero Frey. [address], [place], [place], [address] , [place]. tel:[phone] Referring Provider: Myrna Venegas [address], [place], [place], [address]. tel:[phone] OFFICE/OUTPA TIENT VISIT, [facility], [address], [place], [place], [address], [place] tel:[phone] [facility] back pain1 (chief complaint)a nxiety1 (chief complaint)H LP (chief complaint) Generalized Anxiety DisorderOther spondylosis, lumbar regionHyperlipidem iaEncounter for screening for osteoporosis Feb- 0 Baldomero Banda [address], [place], [address] , [place]. tel:[phone] Referring Provider: Myrna Veneg[address], [place], [place], [address]. tel:[phone] OFFICE/OUTPA TIENT VISIT, [facility], [address], [place], [place], [address], [place] tel:[phone] [facility] back pain1 (chief complaint) Other spondylosis, lumbar regionSciatica, right side Adryan-0 0 Baldomero Banda [address], [place], [place], [address] , [place]. tel:[phone] Referring Provider: Myrna Veneg[address], [place], [place], [address]. tel:[phone] OFFICE/OUTPA TIENT VISIT, [facility], [address], [place], [place], [address], [place] tel:[phone] [facility] lumbago1 (chief complaint)a nxiety1 (chief complaint) Lumbago with sciatica, right sideGeneralized Anxiety Disorder October-0 0 Baldomero Banda [address], [place], [place], [address] , [place]. tel:[phone] Referring Provider: Myrna Veneg[address], [place], [place], [address]. tel:[phone] OFFICE/OUTPA TIENT VISIT, EST [facility], [address], [place], [place], [address], [place] tel:[phone] [facility] Medicine HLP (chief complaint)D (chief complaint)b ack pain1 (chief complaint) HyperlipidemiaVita min D deficiency, unspecifiedLumbago with sciatica, right sideEncounter for screening for malignant neoplasm of colon Aug-3 0-202 0 Baldomero Frey. [address], [place], [place], [address] , [place]. tel:[phone] Referring Provider: Myrna Venegas [address], [place], [place], [address]. tel:[phone] PREV VISIT, EST, AGE 40-64 [facility], [address], [place], [place], [address], [place] tel:[phone] [facility] PHysical (chief complaint) Encntr for general adult medical exam w/o abnormal findings 0 Baldomero Frey. [address], [place], [place], [address] , [place]. [phone] Referring Provider: Myrna [address], [place], [place], [address]. tel:[phone] OFFICE/OUTPA TIENT VISIT, EST [facility], [address], [place], [place], [address], [place] tel:[phone] [facility] back pain1 (chief complaint)a nxiety1 (chief complaint)i nsomnia1 (chief complaint)H LP (chief complaint) Generalized Anxiety DisorderChronic pain syndromeHyperlipid emiaInsomnia, unspecified 9 Baldomero Banda [address], [place], [place], [address] , [place]. [phone] Referring Provider: Myrna Venegas [address], [place], [place], [address]. tel:[phone] OFFICE/OUTPA TIENT VISIT, [facility], [address], [place], [place], [address], tel:[phone] [facility] anxiety1 (chief complaint)i nsomnia1 (chief complaint)H TN (chief complaint)b ack pain1 (chief complaint)H LP (chief complaint) Essential (primary) hypertensionHyperl ipidemiaInsomniaLo w back painGeneralized Anxiety Disorder 9 Baldomero Frey. [address], [place], [place], [address] , [place]. [phone] Referring Provider: Myrna [address], [place], [place], [address]. tel:[phone] OFFICE/OUTPA TIENT VISIT, [facility], [address], [place], [place], [address], [place] tel:[phone] [facility] HLP (chief complaint)D (chief complaint)a nxiety1 (chief complaint)h tn (chief complaint)t oothache1 (chief complaint) Essential (primary) hypertensionHyperl ipidemiaGeneralize d Anxiety DisorderAtypical facial painLow back pain 8 Baldomero Frey. [address], [place], [place], [address] , [place]. [phone] Referring Provider: [address], [place], [place], [address]. tel:[phone] OFFICE/OUTPA TIENT VISIT, [facility], [address], [place], [place], [address], [place] tel:[phone] [facility] HTN (chief complaint)i nsomnia1 (chief complaint) Essential (primary) hypertensionInsomn ia, unspecified 8 Baldomero Frey. [address], [place], [place], [address] , [place]. [phone] Referring Provider: Myrna Venegas [address], [place], [place], [address]. tel:[phone] PREV VISIT, EST, AGE 40-64 [facility], [address], [place], [place], [address], [place] [phone] [facility] PHysical (chief complaint) Encntr for general adult medical exam w/o abnormal findings 2 8 Baldomero Frey. [address], [place], [place], [address] , [place]. tel:[phone] Referring Provider: Tk Alexandre, [address], [place], [place], [address]. tel:[phone] OFFICE/OUTPA TIENT VISIT, [facility], [address], [place], [place], [address], [place] tel:[phone] [facility] depression (chief complaint)i nsomnia (chief complaint)H TN (chief complaint)b ack pain (chief complaint) Dietary surveillance and counselingUnspecif ied essential hypertensionDepres sive disorder, not elsewhere classifiedInsomnia , unspecifiedLumbago 5 Baldomero Frey. [address], [place], [place], [address] , [place]. tel:[phone] Referring Provider: Myrna Veneg[address], [place], [place], [address]. tel:[phone] OFFICE/OUTPA TIENT VISIT, [facility], [address], [place], [place], [address], [place] tel:[phone] [facility] HTN (chief complaint)i nsomnia (chief complaint)a nxiety (chief complaint) Dietary surveillance and counselingHyperten jared, UnspecifiedInsomni a, OtherDepression 5 Baldomero Frey. [address], [place], [place], [address] , [place]. tel:[phone] Referring Provider: [address], [place], [place], [address]. tel:[phone] OFFICE/OUTPA TIENT VISIT, [facility], [address], [place], [place], [address], [place] tel:[phone] [facility] Medicine HTN (chief complaint)V itamin D (chief complaint)m urmur (chief complaint) Dietary surveillance and counselingHyperten jared, UnspecifiedUnspeci fied vitamin deficiencyMurmur 5 Baldomero Frey. [address], [place], [place], [address] , [place]. tel:[phone] Referring Provider: Myrna Venegas [address], [place], [place], [address]. tel:[phone] PREV VISIT, NEW, AGE 40-64 [facility], [address] [place], [address], [place] tel:[phone] [facility] Physical (chief complaint) Dietary surveillance and counselingRoutine Medical ExamRoutine Medical Exam 4 Baldomero Frey. [address], [place], [place], [address] , [place]. tel:[phone] Family History Family Member Type Diagnosis Age At Onset Brother Problem (finding) Hypertension Father Problem (finding) Coronary artery disease 65 Brother Problem (finding) Alive and well Mother Problem (finding) Hypertension Payers Payer name Insurance type Covered libertarian ID Zhanna richter(s) [facility] [id number] Social History Type Description Quantity Date Captured [...] ordered Referral Referred To: LAUREN CISNEROS [address] [place], [place], [phone] Ordered: Referrals: Pain Medicine. LAUREN CISNEROS. Evaluate and treat ordered Referral Referred To: LAUREN CISNEROS [address] [place], [place], [phone] Ordered: Referrals: Allopathic & Osteopathic Physicians : [...] cover 20 pills at each time . HLP Pt has HLP Pt ta kes crestor. Pt denies any myalgia HTN Pt has HTN pt ta kes norvasc and lisinopril and her bp is ok. colon polyp1 Pt has tubular a denoma. Pt did d/w GI doctor about colonoscopy and was told to repeat 2025. anxiety1 Pt has chronic a nxiety and depression. Pt take Effexor and doing ok .Pt denies any suicidal or homicidal thought. Pt denies any crying spells back pain1 Pt has low back pain [...] iron ok now Pt denies any bleeding HTN Pt has HTN Pt ta kes norvasc and lisinopril and her bp is borderline high Pt has been slightly stressed . Pt denies any chest pain or headache. iron deficiency1 Pt has iron def iciency anemia Pt is seeing hematology and she takes oral iron here and there. Pt is waiting for insurance approval for iron infusion by hematology. Pt has hematology papito next week. Pt denies any fatigue or sob or chest pain anxiety1 Pt has chronic a nxiety and depression ,Pt doing ok with effexor Pt denies any suicidal or homicidal thought Pt denies any crying spells back pain1 Pt has low back pain with sciatica and neuropathy PT denies any loss of bowel or bladder control or saddle area paresthesia. Pt needs norco and lyrica refilled. Pt doing ok with meds Pt has DDD physical Pt needs annual physical Pt has [...] deficiency anemia. Pt denies any blood loss. HTN Pt has HTn Pt ta kes lisinopril and norvasc and her bp is ok back pain1 Pt has low back pain with sciatica and neuropathy PT denies any loss of bowel or bladder control or saddle area paresthesia. Pt needs norco and lyrica refilled. polyp1 Pt has large tub ular adenoma on colonoscopy two months ago Pt denies any bleeding or weight loss colon polyp1 Pt had colonosco py done [...] HLP Pt is working on diet now HTN Pt has HTn Pt ta kerosario norterencec. her BP is ok Pt denies any chest pain or headache anxiety1 Pt has chronic a nxiety and depression Pt takes wellbutrin and xanax PRn and doing ok Pt denies any suicidal or homicidal thought Pt denies any crying spells insomnia1 Pt has insomnia. Pt doing ok with vistaril PRn pt does not snore .Pt denies any fatigue HLP Pt has HLP. pt h as not been on diet. D Pt has low vitam in D anxiety1 Pt has chronic a nxiety and depression Pt takes wellbutrin and xanax PRn and doing ok. Pt denies any suicidal or homicidal thought Pt denies any crying spells htn Her BP is border line with norvasc toothache1 Pt has right upp er toothache. her right upper molar broke several months ago. pt c/o toothache for one week. pt denies any facial swelling or fever HTN Pt has HTn. 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 her BP is high today. Pt denies any chest pain or headache Pt has chronic anxiety and depression Pt tried something in skilled nursing but not sure what and she is [...] of bladder control. Pt denies any injury depression Additional infor mation: Pt has chronic anxiety and depression. Pt doing much better with wellbutrin and xanax. Pt denies any suicdial thought. insomnia The patient pres ents for insomnia. Relevant history: a BMI of 30.85. The patient does not have: use of alcohol. Additional information: Pt states that vistaril works well. However, she feels tired next day. HTN BP is 130/80 whi le on losartan and norvasc. Pt is out of meds. No chest pain or headache back pain Additional infor mation: Pt c/o mild low back pain for several months. NO injury. Pt denies any loss of bowel or bladder control. Pt denies sciatica or numbness. Pt does a lot of lifting. Instructions Date Instruction Additional Infor mation Special [...] (BMI) 32.0-32.9, adult Increase activity. Related to En cntr for general adult medical exam w/o abnormal findings Perform monthly self breast examinations. Related to [...] counseling Related to Di etary surveillance counseling Decrease caloric intake Related to Dietary surveillance counseling Physical activity counseling Rel ated to Dietary surveillance counseling Assessments Type Assessment Date assessment Other spondylosis, lumbar region Mental Status Date Cognitive Assessment Orientation - [place] ed to time, place, person, situation.
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
[2024-09-15] MEDS: HYDROcodone/acetaminophen (*CRX) 5-325 MG TABLET 1 TAB PO (17:07)
== END 2024-09-15 19:01 | disposition home or self-care (01) ==
PROVIDERS: Emergency Provider Physician Assistant; PCP Emergency Medicine
DX: S43.402A Unspecified sprain of left shoulder joint, initial encounter (principal); S39.012A Strain of muscle, fascia and tendon of lower back, initial encounter; S73.102A Unspecified sprain of left hip, initial encounter; V89.2XXA Person injured in unspecified motor-vehicle accident, traffic, initial encounter
CPT/HCPCS: 72131; 73030; 73502; 99284; A9270

== ENCOUNTER 2024-11-08 07:59 | Outpatient (CLI) | payer OTHER, SELFPAY ==
--- OUTSIDE RECORDS SUMMARY | 2024-11-08 08:05 | XMS_ITS | Continuity of Care Document ---
Author Organization [facility] Address [address] [place] [address] [place] [address] Phone Care Team Providers Care Anchor Tacker Name Role Phone Tk Alexandre MD Unavailable Unavailable Allergies, Adverse Reactions, Alerts Substance Reaction Status Criticality No Known Allergies Active No Inform ation Medications Medication Instructions Dosage Effective Dates (start - stop) Status Comments Lyrica 50 mg capsule take 1 capsule by oral route 2 times every day 50 MG - Active avoid driving or operate machines hydrocodone 5 mg-acetaminophen 325 mg tablet take 1 tablet by oral route every 6 hours as needed for pain as needed 1.00 tablet - Active PRN for pain, avoid driving or operate machines Vitamin D2 1,250 mcg (50,000 unit) capsule take one capsule orally once per week - Active Norvasc 10 mg tablet take [...] route every day 20 MG - Active Procedures Procedure Date PREV VISIT, EST, AGE 40-64 OFFICE/OUTPATIENT VISIT, [...] Diagnoses Date Provider Providers Copied on Encounter PREV VISIT, EST, AGE 40-64 [facility], [address], [place], [place], [address], [place] tel:[phone] [facility] Medicine physical (chief complaint) Encounter for general adult medical examination without abnormal findings Sep- 5 Baldomero Banda [address], [place], [place], [address] , [place]. tel:[phone] OFFICE/OUTPA TIENT VISIT, EST [facility], [address], [place], [place], [address], [place] tel:[phone] [facility] back pain1 (chief complaint) Other spondylosis, lumbar region 5 Baldomero Banda [address], [place], [place], [address] , [place]. tel:[phone] OFFICE/OUTPA TIENT VISIT, [facility], [address], [place], [place], [address], [place] tel:[phone] [facility] HLP (chief complaint)H TN (chief complaint)c olon polyp1 (chief complaint)a nxiety1 (chief complaint)b ack pain1 (chief complaint) Polyp of colonChronic pain syndromeEssential (primary) hypertensionGenera lized Anxiety DisorderMixed hyperlipidemiaIron deficiency anemia 4 Baldomero Banda [address], [place], [place], [address] , [place]. tel:[phone] Referring Provider: Myrna Veneg[address], [place], [place], [address]. tel:[phone] OFFICE/OUTPA TIENT VISIT, [facility], [address], [place], [place], [address], [place] tel:[phone] [facility] back pain1 (chief complaint)i az (chief complaint)c olon polyp1 (chief complaint) Chronic pain syndromeIron deficiency anemiaPolyp of colonEncntr screen mammogram for malignant neoplasm of breast 4 Baldomero Banda [address], [place], [place], [address] , [place]. tel:[phone] Referring Provider: Myrna Veneg[address], [place], [place], [address]. tel:[phone] OFFICE/OUTPA TIENT VISIT, [facility], [address], [place], [place], [address], [place] tel:[phone] [facility] HTN (chief complaint)i az deficiency1 (chief complaint)a nxiety1 (chief complaint)b ack pain1 (chief complaint) Iron deficiency anemiaEssential (primary) hypertensionGenera lized Anxiety DisorderChronic pain syndromeInconclusi ve mammogram 4 Baldomero Banda [address], [place], [place], [address] , [place]. tel:[phone] Referring Provider: Tk Alexandre, [address], [place], [place], [address]. tel:[phone] PREV VISIT, EST, AGE 40-64 [facility], [address], [place], [place], [address], [place] tel:[phone] [facility] physical (chief complaint) Encounter for general adult medical examination without abnormal findings 3 Baldomero Frey. [address], [place], [place], [address] , [place]. [phone] Referring Provider: Myrna Venegas [address], [place], [place], [address]. tel:[phone] OFFICE/OUTPA TIENT VISIT, [facility], [address], [place], [place], [address], [place] tel:[phone] [facility] HTN (chief complaint)b ack pain1 (chief complaint)p olyp1 (chief complaint) Polyp of colonEssential (primary) hypertensionChroni c pain syndromeIron deficiency anemia 3 Bladomero Frey. [address], [place], [place], [address] , [place]. tel:[phone] Referring Provider: Myrna Veneg[address], [place], [place], [address]. tel:[phone] OFFICE/OUTPA TIENT VISIT, [facility], [address], [place], [place], [address], [place] tel:[phone] [facility] colon polyp1 (chief complaint)H TN (chief complaint)b ack pain1 (chief complaint)a nxiety1 (chief complaint) Chronic pain syndromeEssential (primary) hypertensionGenera lized Anxiety DisorderPolyp of colon Feb 3 Baldomero Frey. [address], [place], [place], [address] , [place]. tel:[phone] Referring Provider: Myrna Venegas [address], [place], [place], [address]. tel:[phone] OFFICE/OUTPA TIENT VISIT, [facility], [address], [place], [place], [address], [place] tel:[phone] [facility] HLP (chief complaint)i az (chief complaint)H TN (chief complaint)b ack pain1 (chief complaint) Iron deficiencyEssentia l (primary) hypertensionMixed hyperlipidemiaChro tk pain syndromeOther specified disorder of bone density 2 Baldomero Frey. [address], [place], [place], [address] , [place]. [phone] Referring Provider: Tk Alexandre [address], [place], [place], [address]. tel:[phone] OFFICE/OUTPA TIENT VISIT, [facility], [address], [place], [place], [address], [place] tel:[phone] [facility] HLP (chief complaint)a nxiety1 (chief complaint)b ack pain1 (chief complaint)H TN (chief complaint) Mixed hyperlipidemiaGene ralized Anxiety DisorderEssential (primary) hypertensionAnemia Chronic pain syndrome 2 Baldomero Frey. [address], [place], [address] , [place]. [phone] Referring Provider: Myrna Veneg[address], [place], [place], [address]. tel:[phone] OFFICE/OUTPA TIENT VISIT, [facility], [address], [place], [place], [address], [place] tel:[phone] [facility] back pain1 (chief complaint)H TN (chief complaint)H LP (chief complaint)a nemia1 (chief complaint) HyperlipidemiaEsse ntial (primary) hypertensionAnemia Chronic pain syndrome 2 Baldomero Banda [address], [place], [place], [address] , [place]. tel:[phone] Referring Provider: Myrna Veneg[address], [place], [place], [address]. tel:[phone] PREV VISIT, EST, AGE 40-64 [facility], [address], [place], [place], [address], [place] tel:[phone] [facility] PHysical (chief complaint) Encounter for general adult medical examination without abnormal findings 2 Baldomero Frey. [address], [place], [place], [address] , [place]. tel:[phone] Referring Provider: Tk Alexandre, [address], [place], [place], [address]. tel:[phone] OFFICE/OUTPA TIENT VISIT, [facility], [address], [place], [place], [address], [place] tel:[phone] [facility] anxiety1 (chief complaint)b ack pain1 (chief complaint)H TN (chief complaint) Vitamin D deficiency, unspecifiedEssenti al (primary) hypertensionOther spondylosis, lumbar regionHyperlipidem iaGeneralized Anxiety Disorder 2 Baldomero Frey. [address], [place], [place], [address] , [place]. tel:[phone] Referring Provider: Myrna Veneg[address], [place], [place], [address]. tel:[phone] OFFICE/OUTPA TIENT VISIT, EST [facility], [address], [place], [place], [address], [place] tel:[phone] [facility] anxiety1 (chief complaint)H TN (chief complaint)b ack pain1 (chief complaint) Generalized Anxiety DisorderOther spondylosis, lumbar regionEssential (primary) hypertensionVitami n D deficiency, unspecified 1 Baldomero Frey. [address], [place], [address] , [place]. [phone] Referring Provider: Myrna Veneg[address], [place], [place], [address]. tel:[phone] PREV VISIT, EST, AGE 40-64 [facility], [address], [place], [place], [address], [place] tel:[phone] [facility] Medicine physical (chief complaint) Encounter for general adult medical examination without abnormal findings 1 Baldomero Frey. [address], [place], [place], [address] , [place]. tel:[phone] Referring Provider: Tk Alexandre, [address], [place], [place], [address]. tel:[phone] OFFICE/OUTPA TIENT VISIT, [facility], [address], [place], [place], [address], [place] tel:[phone] [facility] back pain1 (chief complaint)a nxiety1 (chief complaint)H LP (chief complaint) Generalized Anxiety DisorderOther spondylosis, lumbar regionHyperlipidem iaEncounter for screening for osteoporosis 0 Baldomero Frey. [address], [place], [place], [address] , [place]. tel:[phone] Referring Provider: Myrna Veneg[address], [place], [place], [address]. tel:[phone] OFFICE/OUTPA TIENT VISIT, [facility], [address], [place], [place], [address], [place] tel:[phone] [facility] back pain1 (chief complaint) Other spondylosis, lumbar regionSciatica, right side 0 Baldomero Frey. [address], [place], [place], [address] , [place]. tel:[phone] Referring Provider: Tk Alexandre, [address], [place], [place], [address]. tel:[phone] OFFICE/OUTPA TIENT VISIT, [facility], [address], [place], [place], [address], [place] tel:[phone] [facility] lumbago1 (chief complaint)a nxiety1 (chief complaint) Lumbago with sciatica, right sideGeneralized Anxiety Disorder 0 Baldomero Banda [address], [place], [place], [address] , [place]. tel:[phone] Referring Provider: Myrna Veneg[address], [place], [place], [address]. tel:[phone] OFFICE/OUTPA TIENT VISIT, EST [facility], [address], [place], [place], [address], [place] tel:[phone] [facility] HLP (chief complaint)D (chief complaint)b ack pain1 (chief complaint) HyperlipidemiaVita min D deficiency, unspecifiedLumbago with sciatica, right sideEncounter for screening for malignant neoplasm of colon 0 Baldomero Banda [address], [place], [place], [address] , [place]. tel:[phone] Referring Provider: Myrna Venegas [address], [place], [place], [address]. tel:[phone] PREV VISIT, EST, AGE 40-64 [facility], [address], [place], [place], [address], [place] tel:[phone] [facility] PHysical (chief complaint) Encntr for general adult medical exam w/o abnormal findings 0 Baldomero Banda [address], [place], [place], [address] , [place]. tel:[phone] Referring Provider: Myrna Veneg[address], [place], [place], [address]. tel:[phone] OFFICE/OUTPA TIENT VISIT, EST [facility], [address], [place], [address], [place] tel:[phone] [facility] back pain1 (chief complaint)a nxiety1 (chief complaint)i nsomnia1 (chief complaint)H LP (chief complaint) Generalized Anxiety DisorderChronic pain syndromeHyperlipid emiaInsomnia, unspecified 9 Baldomero Banda [address], [place], [place], [address] , . tel:[phone] Referring Provider: [address], [place], [place], [address]. tel:[phone] OFFICE/OUTPA TIENT VISIT, [facility], [address], [place], [place], [address], tel:[phone] [facility] anxiety1 (chief complaint)i nsomnia1 (chief complaint)H TN (chief complaint)b ack pain1 (chief complaint)H LP (chief complaint) Essential (primary) hypertensionHyperl ipidemiaInsomniaLo w back painGeneralized Anxiety Disorder 9 Baldom[address] Frey. [address], [place], [place], [address] , [place]. tel:[phone] Referring Provider: Myrna Venegas [facility] [address], [place], [place], [address]. tel:[phone] OFFICE/OUTPA TIENT VISIT, [facility], [address] [place] [place], [address], [place] tel:[phone] [facility] HLP (chief complaint)D (chief complaint)a nxiety1 (chief complaint)h tn (chief complaint)t oothache1 (chief complaint) Essential (primary) hypertensionHyperl ipidemiaGeneralize d Anxiety DisorderAtypical facial painLow back pain 8 Baldomero Frey. [address], [place], [place], [address] , [place]. tel:[phone] Referring Provider: Myrna Veneg[address], [place], [place], [address]. tel:[phone] OFFICE/OUTPA TIENT VISIT, [facility], [address] [place] [place], [address], [place] tel:[phone] [facility] HTN (chief complaint)i nsomnia1 (chief complaint) Essential (primary) hypertensionInsomn ia, unspecified 8 Baldomero Frey. [address], [place], [place], [address] , [place]. [phone] Referring Provider: Myrna Veneg[address], [place], [place], [address]. tel:[phone] PREV VISIT, EST, AGE 40-64 [facility], [address], [place], [place], [address], [place] [phone] [facility] PHysical (chief complaint) Encntr for general adult medical exam w/o abnormal findings 8 Baldomero Frey. [address], [place], [place], [address] , [place]. [phone] Referring Provider: Myrna Venegas [address], [place], [place], [address]. tel:[phone] OFFICE/OUTPA TIENT VISIT, [facility], [address], [place], [place], [address], [place] tel:[phone] [facility] depression (chief complaint)i nsomnia (chief complaint)H TN (chief complaint)b ack pain (chief complaint) Dietary surveillance and counselingUnspecif ied essential hypertensionDepres sive disorder, not elsewhere classifiedInsomnia , unspecifiedLumbago 5 Baldomero Frey. [address], [place], [place], [address] , [place]. [phone] Referring Provider: Myrna Veneg[address], [place], [place], [address]. tel:[phone] OFFICE/OUTPA TIENT VISIT, EST [facility], [address], [place], [place], [address], [place] [phone] [facility] HTN (chief complaint)i nsomnia (chief complaint)a nxiety (chief complaint) Dietary surveillance and counselingHyperten jared, UnspecifiedInsomni a, OtherDepression 5 Baldomero Frey. [address], [place], [place], [address] , [place]. [phone] Referring Provider: Myrna Veneg[address], [place], [place], [address]. tel:[phone] OFFICE/OUTPA TIENT VISIT, EST [facility], [address], [place], [place], [address], [place] tel:[phone] [facility] HTN (chief complaint)V itamin D (chief complaint)m urmur (chief complaint) Dietary surveillance and counselingHyperten jared, UnspecifiedUnspeci fied vitamin deficiencyMurmur 5 Baldomero Frey. [address], [place], [place], [address] , [place]. tel:[phone] Referring Provider: Myrna Venegas [address], [place], [place], [address]. tel:[phone] PREV VISIT, NEW, AGE 40-64 [facility], [address] [place] [place], [address], [place] tel:[phone] [facility] Physical (chief complaint) Dietary surveillance and counselingRoutine Medical ExamRoutine Medical Exam 4 Baldomero Frey. [address], [place], [place], [address] , [place]. tel:[phone] Family History Family Member Type Diagnosis Age At Onset Brother Problem (finding) Hypertension Father Problem (finding) Coronary artery disease 65 Brother Problem (finding) Alive and well Mother Problem (finding) Hypertension Payers Payer name Insurance type Covered alliance party ID Zhanna richter(s) [facility] [id number] Social History Type Description Quantity Date Captured Comments Alcohol Use Details No Caffeine Use Details Unknown Tobacco Use Status Never smoked tobacco 2024 Smoking Status Never smoker Sex Female Vital Signs Date / Time: Height Weight BMI Pulse Rate Blood Pressure Temperature Respiratory Rate Body Surface Area Head Circumference BMI percentile Pulse Ox Inhaled Ox 10:18 AM 67.00 in 203.80 lbs 31.9 2 kg/m eter (2) 80 /min 140/70 mm[Hg] 97.3 F 16 /min Chief Complaint And Reason For Visit From encounter dated '10/23/2024 10:11'. physical (chief complaint). Description: Pt needs annual physical. pt has chronic low back pain dueto DDD Pt denies any loss of bowel or bladder control or saddle area paresthesia. pt has HTN Pt takes norvasc and lisinopril and bp stable Pt has anxiety and depression. Pt takes effexor and doing okPt has HLP Pt takes crestor Pt denies any myalgia Plan Of Treatment Date Type Action Status [...] ordered Referral Referred To: LAUREN CISNEROS [address] [facility] [address] [place], [place], [phone] Ordered: Referrals: Pain Medicine. LAUREN CISNEROS. Evaluate and treat ordered Referral Referred To: LAUREN CISNEROS [address] [facility] [address] [place], [place], [phone] Ordered: Referrals: Allopathic & Osteopathic Physicians : [...] Date Complaint History Of Prese nt Illness physical Pt needs annual physical. pt has chronic low back pain due to DDD Pt denies any loss of bowel or bladder control or saddle area paresthesia. pt has HTN Pt takes norvasc and lisinopril and bp stable Pt has anxiety and depression. Pt takes effexor and doing ok Pt has HLP Pt takes crestor Pt denies any myalgia back pain1 Pt has chronic l ow [...] symptpms HTN Pt has HTN Pt ta adamarosario norvasc and lisinopril and her bp is [...] HLP Pt has HLP pt ta catarino flores and her lipid profile is ok now Pt denies any myalgia iron Pt is not anemic but her iron is borderline low Pt denies any bleeding .Pt has colonoscopy scheduled next month. HTN Pt has HTN, Pt t chachofrancisco talleyvasc and bystolic is not covered. her bp [...] headache HTN Pt has HTN Pt ta catarino talleyvasc and her bp is borderline today Pt [...] paresthesia HLP Pt has HLP Pt ta catarino mark and tolerating it ok Pt denies any [...] paresthesia. HTN Pt has HTN Pt ta catarino talleyvasc and her bp is ok. anxiety1 Pt has chronic a nxiety and depression Pt doing ok with effexor Pt denies any suicidal or homicidal thought Pt denies any crying spells HTN Pt has HTN Pt stacey catarino pizarrocriss and her BP is ok Pt denies [...] diet now HTN Pt has HTn Pt stacey chapa. [...] Pt takes norvasc only now while in nursing home .Pt not sure what her BP was with norvasc only Pt was just released from nursing home due to tax issue. her BP is high today. Pt denies any chest pain or headache Pt has chronic anxiety and depression Pt tried something in nursing home but not sure what and she is [...] lifting. Instructions Date Instruction Additional Infor mation Increase physical activity Relat ed to Generalized Anxiety Disorder Weight management Related to Gen eralized Anxiety Disorder Special diet education Related t o Body mass index (BMI) 31.0-31.9, adult Special diet education Related t o Body [...] Essential (primary) hypertension Increase activity. Related to Es sential (primary) [...] Prescribed Diet Educ ation/Lifestyle Education Regarding Diet [id number]||2024-11-08 08:51:00|MM_ITS|BURKT|Imaging|[id number]|"EXAMINATION: MM screening demarco BI w cony HISTORY: Screening TECHNIQUE: Craniocaudal and mediolateral oblique 3-D tomosynthesis images were obtained and synthetic 2-D images were generated. CAD analysis was submitted and interpreted. COMPARISON: Comparison to multiple prior studies sequentially, with oldest reviewed study dated 08/10. BREAST PARENCHYMAL COMPOSITION: Not Dense: The breasts are almost entirely fatty. FINDINGS: There is no evidence of suspicious mass, calcification, or architectural distortion to sugg est malignancy in either breast. There has been no suspicious interval change. IMPRESSION: 1. No mammographic evidence of malignancy. 2. Recommend routine screening mammography in one year. BI-RADS Category 1: Negative Reviewed, dictated and finalized at location A. IMPRESSION: 1. No mammographic evidence of malignancy. 2. Recommend routine screening mammography in one year. BI-RADS Category 1: Negative "
== END 2024-11-08 08:00 | disposition home or self-care (01) ==
LOC: ANHIMG 08:00
PROVIDERS: PCP Emergency Medicine; Visit Provider Emergency Medicine
DX: Z12.31 Encounter for screening mammogram for malignant neoplasm of breast (principal)
CPT/HCPCS: 77063; 77067